=== PATIENT | male | born 1935 | race Caucasian/White ===

== ENCOUNTER 2020-01-02 13:57 | Emergency (ER) | payer MEDICARE, OTHER ==
[2020-01-02 14:09] VITALS: BP 137/87; PULSE 67
--- NOTE | 2020-01-02 14:45 | EDM.PDOC ---
ED HPI GENERAL MEDICAL PROBLEM - General Chief Complaint: Back Pain or Injury Stated Complaint: BACK PAIN Time Seen by Provider: 01/02/20 14:21 Source of Information: Reports: Patient, RN Notes Reviewed History Limitations: Reports: No Limitations - History of Present Illness INITIAL COMMENTS - FREE TEXT/NARRATIVE: Patient is an 84-year-old male who presents to the ED for the evaluation of his mid to lower back pain. Patient states that he is not had any falls or injuries to his back, he states is been present for about a week. He states that he can only recount carrying some groceries quite a ways, and stepping up on a stair, and he felt something pull in his left lower back. He notes that the back is been kind of painful since then. He notes that the pain seemed to get worse today, he went to the walk-in clinic for evaluation, they sent him here for further evaluation as he has a history of an abdominal aortic aneurysm, that was last evaluated in November by Dr. Salas and was found to be stable at that time. They told him that he could have a possible ruptured aneurysm that needed further evaluation. The patient also states that he may have abdominal pain, and his last BM was yesterday, but does not feel constipated. He notes the pain in his back is very sharp pain. Seems to worsen with movement. He further denies any fevers or chills, cough or shortness of breath, vomiting or diarrhea. He does note that he was having some nausea Patient notes he is not having any dysuria, frequency or urgency. He did take Tylenol this morning. Back Pain Score (Numeric/FACES): 8 - Related Data Allergies Allergy/AdvReac Type Severity Reaction Status Date / Time ezetimibe Allergy Rash Verified 01/02/20 14:09 metoprolol Allergy Rash Verified 01/02/20 14:09 morphine Allergy Rash Verified 01/02/20 14:09 sulfacetamide AdvReac Tachycardia Verified 01/02/20 14:09 trimethoprim AdvReac Tachycardia Verified 01/02/20 14:09 Home Meds: Home Meds Amiodarone [Pacerone] 200 mg PO DAILY 10/01/13 [History] Nitroglycerin 0.4 mg SL ASDIRECTED PRN 10/01/13 [History] Omeprazole 20 mg PO DAILY PRN 10/01/13 [History] Warfarin [Coumadin] 7.5 mg PO SUMOWEFR 10/01/13 [History] amLODIPine [Norvasc] 10 mg PO DAILY 10/01/13 [History] atorvaSTATin [Lipitor] 40 mg PO BEDTIME 10/01/13 [History] metFORMIN [metFORMIN XR] 250 mg PO DAILY 10/01/13 [History] Aspirin 81 mg PO DAILY 03/23/15 [History] Warfarin [Coumadin] 5 mg PO TUTHSA 03/23/15 [History] Orphenadrine [Norflex] 1 tab PO Q12H PRN #14 tab.er 05/02/18 [Rx] oxyCODONE HCl/Acetaminophen [Percocet 5-325 mg Tablet] 1 each PO Q6HR #12 tablet 05/04/18 [Rx] Naloxegol Oxalate [Movantik] 25 mg PO DAILY #10 tablet 05/08/18 [Rx] predniSONE 20 mg PO ASDIRECTED #15 tab 01/02/20 [Rx] Past Medical History HEENT History: Reports: Cataract Cardiovascular History: Reports: Afib, Aneurysm (AAA, recently evaluated November 2019 at 5.6 and stable), CAD, Heart Failure, High Cholesterol, Hypertension, [place], PVD Respiratory History: Reports: PE, Sleep Apnea Genitourinary History: Reports: Chronic Renal Insuffiency, Dialysis, Renal Calculus Musculoskeletal History: Reports: Fracture Neurological History: Reports: TIA Endocrine/Metabolic History: Reports: Diabetes, Type II Hematologic History: Reports: Anticoagulation Therapy, Blood Transfusion(s) - Infectious Disease History Infectious Disease History: Reports: MRSA - Past Surgical History HEENT Surgical History: Reports: Cataract Surgery Cardiovascular Surgical History: Reports: Coronary Artery Bypass, Coronary Artery Stent, Pacer, Vascular Surgery Social & Family History - Tobacco Use Smoking Status *Q: Current Every Day Smoker Years of Tobacco use: 70 Packs/Tins Daily: 0.2 - Caffeine Use Caffeine Use: Reports: None - Living Situation & Occupation Living situation: Reports: , with Spouse, with Family (Grandson) Occupation: Retired ED ROS GENERAL - Review of Systems Review Of Systems: Comprehensive ROS is negative, except as noted in HPI. ED EXAM,LOWER BACK PAIN/INJURY - Physical Exam Exam: See Below Exam Limited By: No Limitations General Appearance: Alert, WD/WN, No Apparent Distress Respiratory/Chest: No Respiratory Distress, Lungs Clear, Normal Breath Sounds, No Accessory Muscle Use, Chest Non-Tender Cardiovascular: Normal Peripheral Pulses, Regular Rate, Rhythm, No Edema, No Murmur GI/Abdominal: Normal Bowel Sounds, Soft, Non-Tender, No Distention, No Mass Back Exam: Normal Inspection, Other (Point tenderness in the left lower back, seems to be over the SI joint.) Extremities: Normal Inspection, Normal Capillary Refill Neurological: Alert, Normal Mood/Affect, Normal Dorsiflexion, Normal Plantar Flexion, Difficulty Walking (Patient has been ambulating with a cane, to provide stabilization, as he states it hurts very much to get up out of chairs, and to sit back down.). No: Straight Leg Raise (L), Straight Leg Raise (R), Saddle Anesthesia Psychiatric: Normal Affect, Normal Mood Skin Exam: Warm, Dry, Intact, Normal Color, No Rash Course - Vital Signs Last Recorded V/S: Last Vital Signs Temp 97.0 F 01/02/20 14:06 Pulse 67 01/02/20 14:06 Resp 16 01/02/20 14:06 BP 137/87 01/02/20 14:06 Pulse Ox 98 01/02/20 14:06 - Re-Assessments/Exams Free Text/Narrative Re-Assessment/Exam: 01/02/20 14:48 Patient presents to the ED for evaluation of his back pain. He is thoroughly worried that he has had a ruptured abdominal aortic aneurysm. I assured him that if he was talking with me, this is not very likely; nonetheless he is requesting imaging be done. I have ordered abdomen pelvis CT without contrast for evaluation. 01/02/20 15:[address] demonstrates a abdominal aortic aneurysm measured at 5.6 cm, this is concurrent with what he got told by his multifocal button grinder in November. There is no sign of aneurysm leakage. There is a compression deformity within T11, that shows increased compression from a previous exam. There is also quite a bit of stool appreciated throughout the colon by myself and Dr. Adrian, otherwise no focal abnormalities were appreciated on the abdomen CT that would be causing any of his other issues. There were several calcified gallstones within his gallbladder. 01/02/20 16:02 I did try to go talk with the patient regarding his CT results, and he cannot be found in his room, in any of the ER bathrooms, or the waiting room bathroom in the ER lobby. The admitting staff state they did not see him leave. Unsure as his whereabouts at this time, but it does appear he may have left without results. We will search for him for a little bit longer but he is not been identified anywhere in this ER or ER lobby. 01/02/20 16:11 The patient cell phone was called, and he simply walked by to his , states he is ready to go home without getting results. 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 He can take Norflex for management as he has some of this at home as well. He states he will try this the prednisone be sent to the [place] [facility] [place] [facility] [place] and he will need to go there tomorrow to get these. Departure - Departure Time of Disposition: 15:58 Disposition: Eloped 07 Condition: Good Clinical Impression: AAA (abdominal aortic aneurysm) without rupture Back pain Qualifiers: Back pain location: low back pain Chronicity: acute Back pain laterality: left Sciatica presence: without sciatica Qualified Code(s): M54.5 - Low back pain Compression fracture of T11 vertebra Qualifiers: Encounter type: initial encounter Qualified Code(s): S22.080A - Wedge compression fracture of T11-T12 vertebra, initial encounter for closed fracture - Discharge Information *PRESCRIPTION DRUG MONITORING PROGRAM REVIEWED*: No *COPY OF PRESCRIPTION DRUG MONITORING REPORT IN PATIENT WALLY: No Prescriptions: predniSONE 20 mg PO ASDIRECTED #15 tab Instructions: Abdominal Aortic Aneurysm, [id number], Spinal Compression Fracture Referrals: Adam Stern MD [Primary Care Provider] - Forms: ED Department Discharge Additional Instructions: You were evaluated in the ER today for your back pain, and abdomen pain. A CT was done for evaluation of your AAA, abdomen pain and back pain. Your abdominal aneurysm is stable at 5.6 cm, which correlates to your cardiology a ppointment in November. There is no sign of rupture or leakage at this time. You do have a compression fracture within your T11 vertebrae, but this should not be causing your pain today, your low back pain is most likely musculoskeletal in nature, due to the groceries you were carrying over a week ago. Recommend you go home and take 5 mg Tylenol every 6 hours as needed for further pain relief. Your CT also demonstrated quite a bit of stool throughout your colon, which is suggestive of constipation. I would recommend that you incorporate stool softeners like MiraLAX, Dulcolax or Colace into your daily regimen to help provide a regular bowel regimen, and promote good bowel health. Please return to the ER at any time if your symptoms change or worsen. Sepsis Event Note (ED) - Evaluation Sepsis Screening Result: No Definite Risk - Focused Exam Vital Signs: Vital Signs Temp Pulse Resp BP Pulse Ox 01/02/20 14:06 97.0 F 67 16 137/87 98
--- NOTE | 2020-01-02 15:49 | CT ---
CT abdomen and pelvis Technique: Multiple axial sections were obtained from above the dome of the diaphragm inferiorly through the pubic symphysis. Intravenous contrast was not utilized. Comparison: Prior CT abdomen and pelvis study of 05/04/18. Findings: Mitral annulus calcification is seen. Gynecomastia is noted within the right breast. Adrenal glands show no nodule. Liver contains no focal parenchymal abnormality. Small hiatal hernia is seen. Spleen appears normal. Kidneys show no hydronephrosis. 2 low density lesions are noted within the upper left kidney believed to represent small cysts with larger finding measuring 1.8 cm. Mid and distal abdominal aortic aneurysm is seen. Aneurysm has an AP dimension of 5.6 cm which correlates to 5.3 cm on prior study. Aneurysm does not extend into the iliac arteries. Aneurysm begins below the renal arteries. Atherosclerotic calcification is seen within the abdominal aorta and iliac vessels as well as proximal branch vessels of the ureter. No evidence of aneurysm leakage is seen at this time. No retroperitoneal adenopathy or mesenteric abnormalities are seen. No pelvic mass or adenopathy is seen. Small fat-containing left inguinal hernia seen. No free fluid or inflammatory change is appreciated. Several calcified gallstones are noted within the gallbladder. Femorofemoral bypass graft is noted. Bone window settings shows increased compression deformity within T11 from previous exam. Scattered degenerative change is noted. Impression: 1. Mid and distal abdominal aortic aneurysm. Size has slightly increased from prior study from 5.3 cm to 5.6 cm in AP dimension. 2. Increased compression deformity from prior study within T11. 3. Other findings believed to be incidental as described above. No other acute abnormality is appreciated. Diagnostic code #3 This report was dictated in MDT
== END 2020-01-02 16:17 | disposition left against medical advice (07) ==
LOC: JD.ED 13:57
DX: S22.089A Unspecified fracture of T11-T12 vertebra, initial encounter for closed fracture (principal); M54.5 Low back pain; I71.4 Abdominal aortic aneurysm, without rupture; I13.2 Hypertensive heart and chronic kidney disease with heart failure and with stage 5 chronic kidney disease, or end stage renal disease; E11.22 Type 2 diabetes mellitus with diabetic chronic kidney disease; N18.6 End stage renal disease; I50.9 Heart failure, unspecified; I25.10 Atherosclerotic heart disease of native coronary artery without angina pectoris; E78.00 Pure hypercholesterolemia, unspecified; I25.2 Old myocardial infarction; I48.91 Unspecified atrial fibrillation; F17.210 Nicotine dependence, cigarettes, uncomplicated; Z88.5 Allergy status to narcotic agent; Z88.2 Allergy status to sulfonamides; Z88.8 Allergy status to other drugs, medicaments and biological substances; Z79.01 Long term (current) use of anticoagulants; Z79.899 Other long term (current) drug therapy; Z79.82 Long term (current) use of aspirin; Z99.2 Dependence on renal dialysis; X58.XXXA Exposure to other specified factors, initial encounter
CPT/HCPCS: 74176; 74176-26; 99283; 99283-25

== ENCOUNTER 2020-01-07 15:16 | Emergency (ER) | payer MEDICARE, OTHER ==
[2020-01-07] MEDS ORDERED: Sodium Chloride 0.9% 10 ML Syringe FLUSH PRN (15:34)
[2020-01-07 15:37] VITALS: BP 156/78; PULSE 95
[2020-01-07] MEDS ORDERED: HYDROmorphone 0.5 MG/0.5 ML Syringe IVPUSH ONE (15:44)
[2020-01-07] MEDS ORDERED: Iopamidol 612 MG/ML 100 ML Bottle IVPUSH ONE (15:45)
[2020-01-07] MEDS ORDERED: Sodium Chloride 0.9% 10 ML Syringe FLUSH ONE (15:45)
--- NOTE | 2020-01-07 15:54 | EDM.PDOC ---
ED HPI GENERAL MEDICAL PROBLEM - General Chief Complaint: Back Pain or Injury Stated Complaint: SENT BY DR PARK ABDOMINAL ISSUE Time Seen by Provider: 01/07/20 15:33 Source of Information: Reports: Patient, RN Notes Reviewed History Limitations: Reports: No Limitations - History of Present Illness INITIAL COMMENTS - FREE TEXT/NARRATIVE: Patient is an 84-year-old male who presents to the ED for evaluation of ongoing bilateral mid to lower back pain. This is been going on for the past 10 days. He does have a AAA, that was found to be 5.6 cm by our ER roughly 5 days ago. He did see his primary care provider, Dr. Park, to have lumbar films, and he told us that the radiologist thought it could be up to 6.9 cm at this time. He sent him over here for an abdomen CT, to rule out dissecting aneurysm. He follows with Dr. Salas for cardiology at [place]. The patient's blood pressure at time of triage is 156/78. He is alert and oriented, he states he is in moder ate to severe pain and is not taking any sort of pain medications prior to coming to the ER. He states that when he goes from a sitting to standing position, this hurts worse. He denies any worsening fever/chills, cough/sob, chest pain or abdomen pain. Dr. Park did note that his creatinine was normal at the last time he had drawn labs. Bilateral Middle Back Pain Score (Numeric/FACES): 10 - Related Data Allergies Allergy/AdvReac Type Severity Reaction Status Date / Time ezetimibe Allergy Severe Rash Verified 01/07/20 15:37 metoprolol Allergy Severe Rash Verified 01/07/20 15:37 morphine Allergy Severe Rash Verified 01/07/20 15:37 sulfacetamide AdvReac Tachycardia Verified 01/07/20 15:37 trimethoprim AdvReac Tachycardia Verified 01/07/20 15:37 Home Meds: Home Meds Nitroglycerin 0.4 mg SL ASDIRECTED PRN 10/01/13 [History] Omeprazole 20 mg PO DAILY PRN 10/01/13 [History] Warfarin [Coumadin] 7.5 mg PO DAILY 10/01/13 [History] amLODIPine [Norvasc] 10 mg PO DAILY 10/01/13 [History] atorvaSTATin [Lipitor] 40 mg PO BEDTIME 10/01/13 [History] metFORMIN [metFORMIN XR] 250 mg PO DAILY 10/01/13 [History] Aspirin 81 mg PO DAILY 03/23/15 [History] Albuterol [Proventil HFA] 2 puff INH Q4H PRN 01/07/20 [History] Cyclobenzaprine [Flexeril] 1 tab PO TID PRN 01/07/20 [History] Furosemide [Lasix] 20 mg PO DAILY 01/07/20 [History] Hydrocodone/Acetaminophen [Hydrocodone-Acetamin 5-325 mg] 1 each PO Q6H PRN #20 tablet 01/07/20 [Rx] Hydrocodone/Acetaminophen [[place] 5-325 Tablet] 1 each PO BID PRN 01/07/20 [History] Magnesium Oxide 500 mg PO DAILY 01/07/20 [History] Past Medical History HEENT History: Reports: Cataract Cardiovascular History: Reports: Afib, Aneurysm (5.6cm 01/04/2020.), CAD, Heart Failure, High Cholesterol, Hypertension, [place], PVD, Other (See Below) Other Cardiovascular History: AAA Respiratory History: Reports: PE, Sleep Apnea Gastrointestinal History: Reports: None Genitourinary History: Reports: Chronic Renal Insuffiency, Dialysis, Renal Calculus Musculoskeletal History: Reports: Fracture Neurological History: Reports: TIA Psychiatric History: Reports: None Endocrine/Metabolic History: Reports: Diabetes, Type II Hematologic History: Reports: Anticoagulation Therapy, Blood Transfusion(s) Immunologic History: Reports: None Oncologic (Cancer) History: Reports: None Dermatologic History: Reports: None - Infectious Disease History Infectious Disease History: Reports: None - Past Surgical History HEENT Surgical History: Reports: Cataract Surgery Cardiovascular Surgical History: Reports: Coronary Artery Bypass, Coronary Artery Stent, Pacer, Vascular Surgery, Other (See Below) Other Cardiovascular Surgeries/Procedures: Femoral Artery Stent Social & Family History - Tobacco Use Smoking Status *Q: Current Every Day Smoker Years of Tobacco use: 40 Packs/Tins Daily: 0.5 - Caffeine Use Caffeine Use: Reports: Coffee - Recreational Drug Use Recreational Drug Use: No - Living Situation & Occupation Living situation: Reports: , with Spouse, with Family (Grandson) Occupation: Retired ED ROS GENERAL - Review of Systems Review Of Systems: Comprehensive ROS is negative, except as noted in HPI. ED EXAM,LOWER BACK PAIN/INJURY - Physical Exam Exam: See Below Exam Limited By: No Limitations General Appearance: Alert, WD/WN, No Apparent Distress Respiratory/Chest: No Respiratory Distress, Lungs Clear, Normal Breath Sounds, No Accessory Muscle Use, Chest Non-Tender Cardiovascular: Normal Peripheral Pulses, Regular Rate, Rhythm, No Murmur GI/Abdominal: Normal Bowel Sounds, Soft, Non-Tender, No Distention, No Mass Extremities: Normal Inspection, Normal Capillary Refill Neurological: Alert, Normal Mood/Affect, Normal Dorsiflexion, Normal Plantar Flexion Psychiatric: Normal Affect, Normal Mood Skin Exam: Warm, Dry, Intact, Normal Color, No Rash Course - Vital Signs Last Recorded V/S: Last Vital Signs Temp 96.5 F L 01/07/20 15:33 Pulse 95 01/07/20 15:33 Resp 18 01/07/20 15:33 BP 156/78 H 01/07/20 15:33 Pulse Ox 97 01/07/20 15:33 - Orders/Labs/Meds Orders: Active Orders 24 hr Category Date Time Status Peripheral IV Insertion Adult [OM.PC] Routine Oth 01/07/20 15:33 Ordered Meds: Medications Discontinued Medications Generic Name Dose Route Start Last Admin Trade Name Freq PRN Reason Stop Dose Admin Hydromorphone HCl 0.5 mg 01/07/20 15:44 01/07/20 15:51 Dilaudid IVPUSH 01/07/20 15:45 0.5 mg ONETIME ONE Administration Iopamidol 100 ml 01/07/20 15:45 01/07/20 16:47 Isovue-300 (61%) IVPUSH 01/07/20 15:46 100 ml ONETIME ONE Administration Sodium Chloride 10 ml 01/07/20 15:34 01/07/20 15:52 Saline Flush FLUSH 10 ml ASDIRECTED PRN Administration Keep Vein Open Sodium Chloride 10 ml 01/07/20 15:45 01/07/20 16:47 Saline Flush FLUSH 01/07/20 15:46 10 ml ONETIME ONE Administration - Re-Assessments/Exams Free Text/Narrative Re-Assessment/Exam: 01/07/20 15:57 Patient presents to the ED for ongoing back pain. Will repeat CT of the abdomen pelvis with IV contrast for evaluation of a possible dissecting aneurysm. Patient will also be given 0.5 mg Dilaudid for pain management. 01/07/20 17:[address] of his abdomen shows a aneurysm in his abdomen, that measures 5.7 cm, again 5 days ago as it was 5.6 cm. 01/07/20 17:28 Patient was reassessed at bedside, and he can move more freely with the pain medication given. I will give him some [place] for pain management, I did educate him on the use of this, and he did verbalize understanding. Departure - Departure Time of Disposition: 17:29 Disposition: Home, Self-Care 01 Condition: Good Clinical Impression: AAA (abdominal aortic aneurysm) without rupture Back pain Qualifiers: Back pain location: low back pain Chronicity: acute Back pain laterality: bilateral Sciatica presence: without sciatica Qualified Code(s): M54.5 - Low back pain - Discharge Information Prescriptions: Hydrocodone/Acetaminophen [Hydrocodone-Acetamin 5-325 mg] 1 each PO Q6H PRN #20 tablet PRN Reason: Pain Instructions: Acute Back Pain, Adult Referrals: Adam Park MD [Primary Care Provider] - Forms: ED Department Discharge Additional Instructions: You were evaluated in the ER today for your possible enlarging abdominal aortic aneurysm. Our last study was 5.6 cm for measurement, and today your aneurysm was found to be 5.7 cm. Which is not a significant increase. Please continue to take all your prior medications as previously directed. You have been given a prescription for medication for your back pain, please take as directed. This medication can cause constipation so if you are not already taking a stool softener, please start 1. Also increase your oral fluid intake. This medication can cause slight dizziness as well, please be cautioned when you go from a sitting to standing position. Recommend you follow-up with your supervisor sanding for possible repair of this abdominal aortic aneurysm, or if he would prefer to do some watchful waiting and to make sure it just does not grow. Please return to the ER at any time if your symptoms change or worsen. Sepsis Event Note (ED) - Evaluation Sepsis Screening Result: No Definite Risk - Focused Exam Vital Signs: Vital Signs Temp Pulse Resp BP Pulse Ox 01/07/20 15:33 96.5 F L 95 18 156/78 H 97 - My Orders Last 24 Hours: My Active Orders 01/07/20 15:33 Peripheral IV Insertion Adult [OM.PC] Routine - Assessment/Plan Last 24 Hours: My Active Orders 01/07/20 15:33 Peripheral IV Insertion Adult [OM.PC] Routine
--- NOTE | 2020-01-07 17:16 | CT ---
CT abdomen and pelvis Technique: Multiple axial sections were obtained from above the dome of the diaphragm inferiorly through the pubic symphysis. Intravenous contrast was given. Study performed as a CT angiogram protocol. Findings: Aneurysm is seen within the mid and distal aorta. Aneurysm has a maximum AP dimension of 5.7 cm. This aneurysm measured about 5.6 cm on prior study. Intraluminal thrombus is seen. Diffuse atherosclerotic change noted within the aorta. There is narrowing of the left proximal renal artery but symmetric contrast enhancement is seen of the left kidney as compared to the right kidney. Atherosclerotic change is noted within the proximal right renal artery. 2 small cysts are noted within the upper left kidney. Celiac axis and superior mesenteric artery shows atherosclerotic change without focal stenosis. Common iliac arteries and external iliac arteries show atherosclerotic change. 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 Visualized lung bases show nothing acute. Liver contains no focal parenchymal abnormality. Adrenal glands show no nodule. Gallbladder contains several calcified gallstones. Pancreas shows no discrete abnormality. No retroperitoneal adenopathy or mesenteric abnormalities are seen. No pelvic mass or adenopathy is seen. Appendix is seen which is normal in size. No pelvic mass or adenopathy is seen. No free fluid or inflammatory change is appreciated. Impression: 1. Abdominal aortic aneurysm with maximum AP dimension of about 5.7 cm which is compared to 5.6 cm on prior study. 2. 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 There is some stenosis of the left renal artery but there is symmetric contrast enhancement seen of both kidneys. 3. Other nonacute findings as noted above. Diagnostic code #3 This report was dictated in MDT
== END 2020-01-07 18:08 | disposition home or self-care (01) ==
LOC: JD.ED 15:16
DX: I71.4 Abdominal aortic aneurysm, without rupture (principal); I13.0 Hypertensive heart and chronic kidney disease with heart failure and stage 1 through stage 4 chronic kidney disease, or unspecified chronic kidney disease; E11.22 Type 2 diabetes mellitus with diabetic chronic kidney disease; I50.9 Heart failure, unspecified; N18.9 Chronic kidney disease, unspecified; I48.91 Unspecified atrial fibrillation; I25.10 Atherosclerotic heart disease of native coronary artery without angina pectoris; I25.2 Old myocardial infarction; E11.51 Type 2 diabetes mellitus with diabetic peripheral angiopathy without gangrene; F17.210 Nicotine dependence, cigarettes, uncomplicated; Z88.5 Allergy status to narcotic agent; Z88.2 Allergy status to sulfonamides; Z88.8 Allergy status to other drugs, medicaments and biological substances; Z79.82 Long term (current) use of aspirin; Z79.01 Long term (current) use of anticoagulants; Z79.84 Long term (current) use of oral hypoglycemic drugs; Z86.73 Personal history of transient ischemic attack (TIA), and cerebral infarction without residual deficits; Z79.899 Other long term (current) drug therapy; Z95.5 Presence of coronary angioplasty implant and graft; Z86.711 Personal history of pulmonary embolism
CPT/HCPCS: 74177; 96374; 99284; J1170; Q9967

== ENCOUNTER 2020-01-14 06:03 | Emergency (ER) | payer MEDICARE, OTHER ==
[2020-01-14 06:12] VITALS: BP 140/62; PULSE 64
--- NOTE | 2020-01-14 06:22 | EDM.PDOC ---
<Doni Talbot - Last Filed: 01/14/20 09:56> ED HPI GENERAL MEDICAL PROBLEM - General Chief Complaint: Abdominal Pain Stated Complaint: [facility] AMB Time Seen by Provider: 01/14/20 06:13 - Related Data Allergies Allergy/AdvReac Type Severity Reaction Status Date / Time ezetimibe Allergy Severe Rash Verified 01/14/20 07:03 metoprolol Allergy Severe Rash Verified 01/14/20 07:03 morphine Allergy Severe Rash Verified 01/14/20 07:03 sulfacetamide AdvReac Tachycardia Verified 01/14/20 07:03 trimethoprim AdvReac Tachycardia Verified 01/14/20 07:03 Home Meds: Home Meds Nitroglycerin 0.4 mg SL ASDIRECTED PRN 10/01/13 [History] Omeprazole 20 mg PO DAILY PRN 10/01/13 [History] Warfarin [Coumadin] 7.5 mg PO DAILY 10/01/13 [History] amLODIPine [Norvasc] 10 mg PO DAILY 10/01/13 [History] atorvaSTATin [Lipitor] 40 mg PO BEDTIME 10/01/13 [History] metFORMIN [metFORMIN XR] 250 mg PO DAILY 10/01/13 [History] Aspirin 81 mg PO DAILY 03/23/15 [History] Albuterol [Proventil HFA] 2 puff INH Q4H PRN 01/07/20 [History] Cyclobenzaprine [Flexeril] 1 tab PO TID PRN 01/07/20 [History] Furosemide [Lasix] 20 mg PO DAILY 01/07/20 [History] Hydrocodone/Acetaminophen [Hydrocodone-Acetamin 5-325 mg] 1 each PO Q6H PRN #20 tablet 01/07/20 [Rx] Hydrocodone/Acetaminophen [Ciales 5-325 Tablet] 1 each PO BID PRN 01/07/20 [History] Magnesium Oxide 500 mg PO DAILY 01/07/20 [History] Course - Re-Assessments/Exams Free Text/Narrative Re-Assessment/Exam: 01/14/20 09:45 I assumed care at change of shift patient was evaluated by Dr. Nguyen. He believes the pain is coming from his back but finds it unusual that the patient back symptoms are not getting better over the last couple of weeks. And is concerned about the possibility of his aneurysm causing some discomfort albeit he does not have a acute aortic aneurysm problem at this time. I did discuss patient's case with Dr. Muhammad, vascular surgeon at [facility] in [place]. He believes in the near future the patient needs to be seen and is willing to see the patient first thing Friday to get his aorta issue resolved. On my exam of the patient his abdominal exam is slightly distended no significant discomfort with palpation. Examination of his back reveals significant paraspinous muscle discomfort in the right lumbar area and into the buttocks. The patient does use Flexeril 3 times a day and hydrocodone twice daily and does get good relief of his pain. I again discussed the situation with , who agrees the patient could be safely discharged home. We will keep him on a clear liquid diet and have him drink a bottle of mag citrate today. Departure - Departure Time of Disposition: 09:48 Disposition: Home, Self-Care 01 Clinical Impression: Ileus, AAA (abdominal aortic aneurysm) without rupture - Discharge Information Instructions: Ileus Referrals: Adam Stern MD [Primary Care Provider] - Forms: ED Department Discharge Additional Instructions: Return to the emergency room with any questions problems or worsening symptoms. Return if not better in 24 hours sooner if getting worse Clear liquid diet for the next 24 hours, however you can take your routine medications. After 24 hours slowly advance diet as tolerated. Drink 1 bottle of magnesium citrate today. Follow-up with Dr. Muhammad or the vascular team at [facility] Friday at 10:00 a.[address]. The phone number to the clinic is [phone] Use Tylenol for the pain and try and decrease the use the hydrocodone if possible as this can slow down your intestines. Daily Tylenol intake to less than 4000 mg in a 24-hour. Remember the hydrocodone contains 325 mg of Tylenol, or acetaminophen with each pill. All the Coumadin clinic when you get home and tell them your INR was 4.16 here in the emergency room and they should advise you on further dosing and lab monitoring. <Get Adrian - Last Filed: 01/18/20 19:25> ED HPI GENERAL MEDICAL PROBLEM - General Source of Information: Reports: Patient History Limitations: Reports: No Limitations - History of Present Illness INITIAL COMMENTS - FREE TEXT/NARRATIVE: 84-year-old male presents to the ED for evaluation of diffuse abdominal pain. He reports that he has left upper quadrant left lateral abdominal pain which is constant but has an intermittent colicky component. Current pain is on the right side of the abdomen i.e. it is moving around. Patient has a history of chronic constipation. Took MiraLAX by mouth last week with some bowel movement. He states he had good bowel movement 2 days ago. No blood noted. Pain does cause intermittent nausea but no vomiting. Patient kept on a hydrocodone tablet and a muscle relaxant tonight. Patient has a history of abdominal aortic aneurysm measuring 5.7 cm on most recent evaluation in November of this year with CT abdomen and IV contrast. He has a history of a stent in his right femoral artery and a blockage on the left femoral artery causing peripheral vascular disease. He is a potential candidate for Endo vascular procedure for his aneurysm due to his age but is holding off at this point time due to COVID-19 pandemic. He has had no previous abdominal surgery. He has had open heart surgery and bypass surgery carried out by Dr. Salas in [place]. At present feels mildly short of breath. No burping or belching. Currently rates his pain as 8 out of 10. Onset: Today, Sudden Onset Date: 01/14/20 Onset Time: 00:00 Duration: Hour(s):, Getting Worse Location: Reports: Abdomen (Primarily left upper quadrant of the abdomen but occasional radiation to the right upper quadrant of the abdomen as well.) Quality: Reports: Ache (constant pain ), Sharp, Stabbing Severity: Severe Improves with: Reports: None Worsens with: Reports: None Context: Denies: Activity, Exercise, Lifting, Sick Contact, Trauma Associated Symptoms: Reports: Cough, Loss of Appetite, Malaise, Nausea/Vomiting (occassional nauseabut no vomiting. ), Shortness of Breath. Denies: No Other Symptoms, Confusion, Chest Pain, cough w sputum, Diaphoresis, Fever/Chills, Hea daches, Rash, Seizure, Syncope Treatments DIRECTOR OF ADMISSIONS: Reports: Other (see below) (hydrocodone 5/325mg po about 0400hrs. 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 Respiratory History: Reports: PE, Sleep Apnea Gastrointestinal History: Reports: None, Cholelithiasis, Chronic Constipation Genitourinary History: Reports: Chronic Renal Insuffiency, Dialysis, Renal Calc ulus Musculoskeletal History: Reports: Fracture Neurological History: Reports: TIA Psychiatric History: Reports: None Endocrine/Metabolic History: Reports: Diabetes, Type II (Controlled with metformin 250mg once daily.) Hematologic History: Reports: Anticoagulation Therapy, Blood Transfusion(s) Immunologic History: Reports: None Oncologic (Cancer) History: Reports: None Dermatologic History: Reports: None - Infectious Disease History Infectious Disease History: Reports: None - Past Surgical History HEENT Surgical History: Reports: Cataract Surgery Cardiovascular Surgical History: Reports: Coronary Artery Bypass, Coronary Artery Stent, Pacer, Vascular Surgery, Other (See Below) Other Cardiovascular Surgeries/Procedures: Femoral Artery Stent Social & Family History - Caffeine Use Caffeine Use: Reports: Coffee - Living Situation & Occupation Living situation: Reports: , with Spouse, with Family (Grandson) Occupation: Retired ED ROS GENERAL - Review of Systems Review Of Systems: See Below Constitutional: Reports: Malaise, Weakness, Fatigue, Decreased Appetite. Denies: Fever, Chills HEENT: Reports: Glasses Respiratory: Reports: Shortness of Breath, Wheezing, Cough (occassional), Other ( history of sleep apnea. ). Denies: Pleuritic Chest Pain, Sputum Cardiovascular: Reports: Blood Pressure Problem, Claudication (Lt leg. known femerol artery blockage --previoustenting Rt femoral artery), Dyspnea on Exertion. Denies: Chest Pain, Edema, Lightheadedness, Orthopnea, Palpitations Endocrine: Reports: Fatigue GI/Abdominal: Reports: Abdominal Pain ( see hx of present illness. ), Constipation (chronic), Decreased Appetite, Distension, Nausea (occassionally due to the pain. ). Denies: Diarrhea, Difficulty Swallowing, Flatus, Hematemesis, Hematochezia, Melena, Mucous in Stool : Reports: Frequency, Other (nocturia x 2-3.) Musculoskeletal: Reports: Neck Pain, Shoulder Pain, Back Pain, Joint Pain ( knees andhips on occassion. ) Skin: Reports: No Symptoms Neurological: Reports: Difficulty Walking (due to leg weakness. ), Weakness. Denies: No Symptoms, Confusion, Headache, Numbness, Syncope, Tingling Psychiatric: Reports: No Symptoms Hematologic/Lymphatic: Reports: No Symptoms Immunologic: Reports: No Symptoms ED EXAM, GI/ABD - Physical Exam Exam: See Below Exam Limited By: No Limitations General Appearance: Alert, WD/WN, Moderate Distress, Other ( Temperature is 35.9. Heart rate 64 and sinus respiratory is 22 with O2 sats of 94% on room air BP 140/62.) Eyes: Bilateral: Pale Conjunctiva ( mild bilaterally.) Throat/Mouth: Normal Inspection, Normal Lips, Normal Oropharynx, Other ( dry spittal corner of Rt mouth. ) Head: Atraumatic, Normocephalic Neck: Normal Inspection, Limited Range of Motion, Other ( recent carotid ultrasound was reported to be normal.). No: Full Range of Motion, Carotid Bruit, Lymphadenopathy (L), Lymphadenopathy (R) Respiratory/Chest: Decreased Breath Sounds ( to the lower 25 % bilaterally. ), Wheezing ( occassional expiratory wheeze. ), Other ( wel healed midline sternotomy incision. Pacemaker Lt upper anterior chest. ). No: Lungs Clear, No rmal Breath Sounds, Rhonchi Cardiovascular: Regular Rate, Rhythm, No Edema, No Gallop, No Murmur, No Rub, Other (no palpable pulses below the femerols bilaterally. ). No: Normal Peripheral Pulses GI/Abdominal Exam: Non-Tender, No Organomegaly, No Abnormal Bruit, No Mass, Pelvis Stable, Distended ( and diffusely tympanitic to percussion. ), Abnormal Bowel Sounds ( diffusely hyperactive bowl sounds. ), Other ( palpable abdominal aorticaneurysm on deep palpation. ) Back Exam: Normal Inspection, Decreased Range of Motion. No: CVA Tenderness (L), CVA Tenderness (R) Extremities: Normal Inspection, No Pedal Edema, Joint Swelling ( mild in both knees. ), Other (decreased pulses below the femerol arteries bilaterally. ) Neurological: Alert, Oriented, CN II-XII Intact, Normal Cognition Psychiatric: Anxious Skin Exam: Warm, Dry, Intact, Pallor ( mild pallor. ) EKG INTERPRETATION EKG Date: 01/14/20 Time: 08:00 Rhythm: NSR Rate (Beats/Min): 72 [place]: LAD-Left Ozark Deviation P-Wave: Present (First-degree AV block.) QRS: Other (Left ventricular hypertrophy pattern with repolarization abnormality. Poor R wave progression throughout the anterior septal wall compatible with old anteroseptal myocardial infarction.) ST-T: Other (Diffuse repolarization abnormality particular noted in the inferior leads and V6.) QT: Prolonged (QTC is markedly prolonged.) EKG Interpretation Comments: Abnormal ECG with no signs of acute ischemic change. Course - Vital Signs Last Recorded V/S: Last Vital Signs Temp 35.9 C L 01/14/20 06:07 Pulse 64 01/14/20 06:07 Resp 22 H 01/14/20 06:07 BP 140/62 01/14/20 06:07 Pulse Ox 94 L 01/14/20 06:07 - Orders/Labs/Meds Labs: Laboratory Tests 01/14/20 01/14/20 01/14/20 Range/Units 06:32 06:32 06:32 WBC 9.15 H (4.23-9.07) K/mm3 RBC 5.36 (4.63-6.08) M/mm3 Hgb 15.9 D (13.7-17.5) gm/dl Hct 48.2 (40.1-51.0) % MCV 89.9 (79.0-92.2) fl MCH 29.7 (25.7-32.2) pg MCHC 33.0 (32.2-35.5) g/dl RDW Std Deviation 52.6 H (35.1-43.9) fL Plt Count 282 (163-337) K/mm3 MPV 9.6 (9.4-12.3) fl Neut % (Auto) 76.2 H (34.0-67.9) % Lymph % (Auto) 11.0 L (21.8-53.1) % Edmunds % (Auto) 9.4 (5.3-12.2) % Eos % (Auto) 3.1 (0.8-7.0) Baso % (Auto) 0.1 (0.1-1.2) % Neut # (Auto) 6.97 H (1.78-5.38) K/mm3 Lymph # (Auto) 1.01 L (1.32-3.57) K/mm3 Edmunds # (Auto) 0.86 H (0.30-0.82) K/mm3 Eos # (Auto) 0.28 (0.04-0.54) K/mm3 Baso # (Auto) 0.01 (0.01-0.08) K/mm3 PT 43.3 H (9.7-11.7) SECONDS INR 4.16 APTT 52 H (22-31) SECONDS Sodium 135 L (136-145) mEq/L Potassium 4.3 (3.5-5.1) mEq/L Chloride 100 (98-107) mEq/L Carbon Dioxide 26 (21-32) mEq/L Anion Gap 13.3 (5-15) BUN 18 (7-18) mg/dL Creatinine 1.2 (0.7-1.3) mg/dL Est Cr Clr Drug Dosing 47.46 mL/min Estimated GFR (MDRD) 58 (>60) mL/min BUN/Creatinine Ratio 15.0 (14-18) Glucose 112 (83-115) mg/dL Calcium 10.1 (8.5-10.1) mg/dL Magnesium 2.4 (1.8-2.4) mg/dl Total Bilirubin 0.7 (0.2-1.0) mg/dL AST 23 (15-37) U/L ALT 23 (16-63) U/L Alkaline Phosphatase 122 H (46-116) U/L CK-MB (CK-2) (0-3.6) ng/ml Troponin I 0.105 H* (0.00-0.056) ng/mL C-Reactive Protein 1.8 H* (<1.0) mg/dL NT-Pro-B Natriuret Pep (0-450) pg/mL Total Protein 7.8 (6.4-8.2) g/dl Albumin 3.5 (3.4-5.0) g/dl Globulin 4.3 gm/dL Albumin/Globulin Ratio 0.8 L (1-2) Lipase (73-393) U/L COVID-19 ([facility]) (NEGATIVE) 01/14/20 01/14/20 01/14/20 Range/Units 06:32 06:32 06:32 WBC (4.23-9.07) K/mm3 RBC (4.63-6.08) M/mm3 Hgb (13.7-17.5) gm/dl Hct (40.1-51.0) % MCV (79.0-92.2) fl MCH (25.7-32.2) pg MCHC (32.2-35.5) g/dl RDW Std Deviation (35.1-43.9) fL Plt Count (163-337) K/mm3 MPV (9.4-12.3) fl Neut % (Auto) (34.0-67.9) % Lymph % (Auto) (21.8-53.1) % Edmunds % (Auto) (5.3-12.2) % Eos % (Auto) (0.8-7.0) Baso % (Auto) (0.1-1.2) % Neut # (Auto) (1.78-5.38) K/mm3 Lymph # (Auto) (1.32-3.57) K/mm3 Edmunds # (Auto) (0.30-0.82) K/mm3 Eos # (Auto) (0.04-0.54) K/mm3 Baso # (Auto) (0.01-0.08) K/mm3 PT (9.7-11.7) SECONDS INR APTT (22-31) SECONDS Sodium (136-145) mEq/L Potassium (3.5-5.1) mEq/L Chloride (98-107) mEq/L Carbon Dioxide (21-32) mEq/L Anion Gap (5-15) BUN (7-18) mg/dL Creatinine (0.7-1.3) mg/dL Est Cr Clr Drug Dosing mL/min Estimated GFR (MDRD) (>60) mL/min BUN/Creatinine Ratio (14-18) Glucose (83-115) mg/dL Calcium (8.5-10.1) mg/dL Magnesium (1.8-2.4) mg/dl Total Bilirubin (0.2-1.0) mg/dL AST (15-37) U/L ALT (16-63) U/L Alkaline Phosphatase (46-116) U/L CK-MB (CK-2) 1.3 (0-3.6) ng/ml Troponin I (0.00-0.056) ng/mL C-Reactive Protein (<1.0) mg/dL NT-Pro-B Natriuret Pep 1774 H (0-450) pg/mL Total Protein (6.4-8.2) g/dl Albumin (3.4-5.0) g/dl Globulin gm/dL Albumin/Globulin Ratio (1-2) Lipase 81 (73-393) U/L COVID-19 ([facility]) (NEGATIVE) 01/14/20 Range/Units 08:10 WBC (4.23-9.07) K/mm3 RBC (4.63-6.08) M/mm3 Hgb (13.7-17.5) gm/dl Hct (40.1-51.0) % MCV (79.0-92.2) fl MCH (25.7-32.2) pg MCHC (32.2-35.5) g/dl RDW Std Deviation (35.1-43.9) fL Plt Count (163-337) K/mm3 MPV (9.4-12.3) fl Neut % (Auto) (34.0-67.9) % Lymph % (Auto) (21.8-53.1) % Edmunds % (Auto) (5.3-12.2) % Eos % (Auto) (0.8-7.0) Baso % (Auto) (0.1-1.2) % Neut # (Auto) (1.78-5.38) K/mm3 Lymph # (Auto) (1.32-3.57) K/mm3 Edmunds # (Auto) (0.30-0.82) K/mm3 Eos # (Auto) (0.04-0.54) K/mm3 Baso # (Auto) (0.01-0.08) K/mm3 PT (9.7-11.7) SECONDS INR APTT (22-31) SECONDS Sodium (136-145) mEq/L Potassium (3.5-5.1) mEq/L Chloride (98-107) mEq/L Carbon Dioxide (21-32) mEq/L Anion Gap (5-15) BUN (7-18) mg/dL Creatinine (0.7-1.3) mg/dL Est Cr Clr Drug Dosing mL/min Estimated GFR (MDRD) (>60) mL/min BUN/Creatinine Ratio (14-18) Glucose (83-115) mg/dL Calcium (8.5-10.1) mg/dL Magnesium (1.8-2.4) mg/dl Total Bilirubin (0.2-1.0) mg/dL AST (15-37) U/L ALT (16-63) U/L Alkaline Phosphatase (46-116) U/L CK-MB (CK-2) (0-3.6) ng/ml Troponin I (0.00-0.056) ng/mL C-Reactive Protein (<1.0) mg/dL NT-Pro-B Natriuret Pep (0-450) pg/mL Total Protein (6.4-8.2) g/dl Albumin (3.4-5.0) g/dl Globulin gm/dL Albumin/Globulin Ratio (1-2) Lipase (73-393) U/L COVID-19 ([facility]) Negative (NEGATIVE) Meds: Medications Discontinued Medications Generic Name Dose Route Start Last Admin Trade Name Enedelia PRN Reason Stop Dose Admin Furosemide 40 mg 01/14/20 08:17 01/14/20 09:16 Lasix IVPUSH 01/14/20 08:18 40 mg NOW ONE Administration Hydromorphone HCl 0.5 mg 01/14/20 06:23 01/14/20 06:31 Dilaudid IVPUSH 01/14/20 06:24 0.5 mg ONETIME ONE Administration Sodium Chloride 1,000 mls @ 125 mls/hr 01/14/20 06:30 01/14/20 06:30 Normal Saline IV 125 mls/hr ASDIRECTED SHERLY Administration Sodium Chloride 1,000 mls @ 75 mls/hr 01/14/20 08:15 Normal Saline IV ASDIRECTED SHERLY Ondansetron HCl 4 mg 01/14/20 06:23 01/14/20 06:31 Zofran IVPUSH 01/14/20 06:24 4 mg ONETIME ONE Administration - Radiology Interpretation Free Text/Narrative:: 84-year-old male presents to the ED for evaluation of diffuse abdominal pain. He presents to the ED per [place] [facility] from his own home. Patient complains of left upper quadrant abdominal pain primarily but it radiates occasionally to the right side of the abdomen as well. He has a history of chronic constipation with good bowel movements x2 on January 11. Abdominal pain last week and on January 07. He apparently had a CT scan of his abdomen performed at that time. Results will be looked up. Subsequently has had a CT of the abdomen per [facility] on January 09 with contrast to evaluate abdominal aortic aneurysm which apparently is now measuring 5.7 cm. He is a candidate for endovascular procedure but awaiting surgery due to COVID-19 pandemic. Current pain is constant with a colicky component. Exam reveals diffuse tympany to percussion with hyperactive bowel sounds in all 4 quadrants. No surgical scars on the abdomen other than where drain site was below his sternum after open heart surgery or cardiac bypass many years ago. Soft palpation with no localized pain identified. Previous surgeries of the right inguinal area from placement of a femoral artery stent. No pulses are palpable below the femorals. Plan IV fluids normal saline at 125 mils per hour. Given Dilaudid 0.5 mg IV with Zofran 4 mg IV for pain relief. He will have a KUB performed. Routine labs to be collected including CRP. - Re-Assessments/Exams Free Text/Narrative Re-Assessment/Exam: 01/14/20 06:56 Hematology reveals white count of 9.15 with 76.2% neutrophils. Hemoglobin is 15.9 with hematocrit of 48.2 suggesting mild hemoconcentration. Platelet counts 282,000. 01/14/20 07:26 KUB reveals a large amount of air distending several loops of dilated small bowel compatible with at least partial small bowel obstruction. Patient reports still passing flatus up until about 6 to 8 hours ago. There is a minimal amount of stool in the left hemicolon and a medium stool bolus in the rectal vault. Labs are pending as far as chemistry goes. Several small gallstones are evident on the KUB. Karla present in the right inguinal area due to previous right arterial stenting. Patient reports his pain is pretty well gone at this point time. He has been able to relax and fall asleep in the ER. 01/14/20 07:28 PT is elevated at 43.3 with an INR of 4.16. PTT is elevated as well at 52. Sodium slightly low at 132. Potassium 4.3. Chloride 100 with a bicarb of 26. Anion gap is 13.3. BUN is 18 with a creatinine of 1.2. Estimated GFR is 58. Glucose is 112 with a calcium of 10.1 upper limits of normal. Magnesium is 2.4. Total bilirubin is 0.7 with an AST of 23 and an ALT of 23. Alk phos days is 122. Troponin I is elevated at 0.105. Have CK-MB done to see if there is any evidence of acute myocardial infarction vs a stress response. ECG will be ordered. CXR as well. C-reactive protein elevated at 1.8. Total protein 7.8 with an albumin fraction of 3.5. 01/14/20 07:31 Radiologist comments that abdominal aortic aneurysm is noted within the distal aorta. Measurement is somewhat overestimated at 6.9 cm. This aneurysm measured 5.[address] exam 6 days ago. Iliac stent noted on the right side. He comments that gas and stool noted throughout the colon. Gas is mildly prominent within small bowel most likely due to obstipation versus an ileus. Patient clinically does not have an ileus as he has very hyperactive bowel sounds. He does not feel there is any obstructive component to the dilated bowl. 01/14/20 07:45 BNP is elevated at 1774. He usually takes Lasix every morning according to his med list. He deniesthat he is on lasix daily. Rubens lreduce his IV to 75mls/hr. Will be given Lasix 40mg IV now for CHF. 01/14/20 07:57 chest x-ray reveals marked cardiomegaly. Slightly hyperinflated lung curtis bilaterally. No evidence of significant vascular congestion or pleural effusions. He does have a pacemaker left upper anterior chest. I did look at his CT scan of chest abdomen pelvis that was performed on the of this month. It did reveal a 5.7 cm aneurysm of the abdominal aorta. Liver was mildly enlarged with fatty infiltration. Multiple also find gallstones appreciated on CT. Both kidneys are atrophic but filled adequately and the ureters were normal. He did have diffusely dilated loops of small bowel on shoe treer film prior to the CT scan. CT did reveal a good deal of stool throughout the colon with some air-fluid levels in the transverse colon. 01/14/20 08:14 she has been able to rest in the ED. He states his abdominal pain is very minimal like 1 out of 10 at most. He does not feel however that he is passed any flatus since coming into the ER. Is elevated INR is likely secondary to not eating much food as of late. He reports that he takes 7.5 mg of Coumadin every night at bedtime and he did so last night. Care will be transferred to Dr. Talbot at change of shift. Pending labs are serum lipase and CK-MB. It appears the patient will need admission to the hospital for observation status to make sure is not going to be developed a small bowel obstruction and for relief of abdominal pain. Departure - Discharge Information *PRESCRIPTION DRUG MONITORING PROGRAM REVIEWED*: Not Applicable *COPY OF PRESCRIPTION DRUG MONITORING REPORT IN PATIENT WALLY: Not Applicable Sepsis Event Note (ED) - Evaluation Sepsis Screening Result: No Definite Risk
[2020-01-14] MEDS ORDERED: HYDROmorphone 0.5 MG/0.5 ML Syringe IVPUSH ONE (06:23)
[2020-01-14] MEDS ORDERED: Ondansetron 4 MG/2 ML SDV IVPUSH ONE (06:23)
[2020-01-14] MEDS ORDERED: Sodium Chloride 0.9% 1,000 ML IV SCH ×2 (06:30→08:15)
--- NOTE | 2020-01-14 07:22 | CR ---
Abdomen: Supine view of the abdomen was obtained. Comparison: Previous abdominal x-ray of 05/08/18. Previous CT abdomen and pelvis study of 01/07/20. Gas and stool noted throughout the colon. Gas is mildly prominent within small bowel most likely due to obstipation or ileus. This does not appear obstructive. Calcificat calcifications are ion seen within the upper right abdomen which are most likely due to gallstones. Abdominal aortic aneurysm is noted within the distal aorta. Measurement is somewhat overestimated at 6.9 cm, this aneurysm measured 5.[address] exam. Iliac stent is noted. Bony structures are osteopenic. Surgical clips are seen overlying the right hip. Impression: 1. Scattered gas and stool throughout the colon. Gas is mildly prominent within portions of small bowel most likely due to obstipation or ileus. 2. Gallstones and abdominal aortic aneurysm. Diagnostic code #3 This report was dictated in MDT
[2020-01-14] MEDS ORDERED: Furosemide 40 MG/4 ML VIAL IVPUSH ONE (08:17)
--- NOTE | 2020-01-14 08:28 | CR ---
Chest: Portable view of the chest was obtained. Comparison: Prior chest x-ray of 05/02/16. Heart size is within normal limits for portable technique. Tortuous thoracic aorta is noted. Sternotomy wires are seen. Pacemaker is noted. Lungs are clear with no acute parenchymal change. Bony structures are grossly intact. Impression: 1. Nothing acute is seen on portable chest x-ray. Diagnostic code #2 This report was dictated in MDT
--- NOTE | 2020-01-14 09:32 | PCM.CONS ---
H&P History of Present Illness - General Date of Service: 01/14/20 Source of Information: Patient History Limitations: Reports: No Limitations - History of Present Illness Initial Comments - Free Text/Narative: The patient presents to the ED for severe back pain. This has been going on for the past two weeks. It is slowly worsening. He denies any abdominal pain. Back pain is in the lower back, slightly to the left. Worse with movement such as turning or twisting. Better with resting. He denies any trauma to the back. He does report that he felt a small muscle pull in the left lower abdomen 2 weeks ago as he was carrying groceries upstairs but this does not seem directly connected to his back pain. He denies any nausea, vomiting, diarrhea. He does report history of intermittent constipation.Last BM was yesterday. He has been passing flatus. He is tolerating diet. Onset of Symptoms: Reports: Gradual Duration of Symptoms: Reports: Day(s): (14) Location: Reports: Back Quality: Reports: Ache, Sharp Severity: Severe Improves with: Reports: Immobilization Worsens with: Reports: Other (turning and twisting), Movement Associated Symptoms: Reports: No Other Symptoms Bilateral Lower Back Pain Score (Numeric/FACES): 10 - Related Data Allergies/Adverse Reactions: Allergies Allergy/AdvReac Type Severity Reaction Status Date / Time ezetimibe Allergy Severe Rash Verified 01/14/20 07:03 metoprolol Allergy Severe Rash Verified 01/14/20 07:03 morphine Allergy Severe Rash Verified 01/14/20 07:03 sulfacetamide AdvReac Tachycardia Verified 01/14/20 07:03 trimethoprim AdvReac Tachycardia Verified 01/14/20 07:03 Home Medications: Home Meds Nitroglycerin 0.4 mg SL ASDIRECTED PRN 10/01/13 [History] Omeprazole 20 mg PO DAILY PRN 10/01/13 [History] Warfarin [Coumadin] 7.5 mg PO DAILY 10/01/13 [History] amLODIPine [Norvasc] 10 mg PO DAILY 10/01/13 [History] atorvaSTATin [Lipitor] 40 mg PO BEDTIME 10/01/13 [History] metFORMIN [metFORMIN XR] 250 mg PO DAILY 10/01/13 [History] Aspirin 81 mg PO DAILY 03/23/15 [History] Albuterol [Proventil HFA] 2 puff INH Q4H PRN 01/07/20 [History] Cyclobenzaprine [Flexeril] 1 tab PO TID PRN 01/07/20 [History] Furosemide [Lasix] 20 mg PO DAILY 01/07/20 [History] Hydrocodone/Acetaminophen [Hydrocodone-Acetamin 5-325 mg] 1 each PO Q6H PRN #20 tablet 01/07/20 [Rx] Hydrocodone/Acetaminophen [[place] 5-325 Tablet] 1 each PO BID PRN 01/07/20 [History] Magnesium Oxide 500 mg PO DAILY 01/07/20 [History] Past Medical History HEENT History: Reports: Cataract Cardiovascular History: Reports: Afib, Aneurysm (5.6cm 01/04/2020.), 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 Respiratory History: Reports: PE, Sleep Apnea Gastrointestinal History: Reports: None, Cholelithiasis, Chronic Constipation Genitourinary History: Reports: Chronic Renal Insuffiency, Dialysis, Renal Calculus Musculoskeletal History: Reports: Fracture Neurological History: Reports: TIA Psychiatric History: Reports: None Endocrine/Metabolic History: Reports: Diabetes, Type II (Controlled with metf ormin 250mg once daily.) Hematologic History: Reports: Anticoagulation Therapy, Blood Transfusion(s) Immunologic History: Reports: None Oncologic (Cancer) History: Reports: None Dermatologic History: Reports: None - Infectious Disease History Infectious Disease History: Reports: None - Past Surgical History HEENT Surgical History: Reports: Cataract Surgery Cardiovascular Surgical History: Reports: Coronary Artery Bypass, Coronary Artery Stent, Pacer, Vascular Surgery, Other (See Below) Other Cardiovascular Surgeries/Procedures: Femoral Artery Stent Social & Family History - Tobacco Use Smoking Status *Q: Never Smoker Second Hand Smoke Exposure: No - Caffeine Use Caffeine Use: Reports: Coffee - Recreational Drug Use Recreational Drug Use: No - Living Situation & Occupation Living situation: Reports: , with Spouse, with Family (Grandson) Occupation: Retired H&P Review of Systems - Review of Systems: Review Of Systems: See Below General: Reports: No Symptoms HEENT: Reports: No Symptoms Pulmonary: Reports: No Symptoms Cardiovascular: Reports: No Symptoms Gastrointestinal: Reports: No Symptoms Genitourinary: Reports: No Symptoms Musculoskeletal: Reports: Back Pain Skin: Reports: No Symptoms Psychiatric: Reports: No Symptoms Neurological: Reports: No Symptoms Exam - Exam Exam: See Below - Vital Signs Vital Signs: Last Vital Signs Temp 96.6 F L 01/14/20 06:07 Pulse 64 01/14/20 06:07 Resp 22 H 01/14/20 06:07 BP 140/62 01/14/20 06:07 Pulse Ox 94 L 01/14/20 06:07 Weight: 81.647 kg - Exam General: Alert, Oriented, Cooperative Lungs: Clear to Auscultation, Normal Respiratory Effort Cardiovascular: Regular Rate, Regular Rhythm, Normal S1, Normal S2 GI/Abdominal Exam: Soft, Non-Tender, No Organomegaly, No Distention, No Mass Back Exam: Paraspinal Tenderness (on a localized spot in the lower back just to the left of the spine) Extremities: Normal Inspection, Normal Range of Motion - Patient Data Lab Results Last 24 hrs: Laboratory Results - last 24 hr 01/14/20 01/14/20 01/14/20 Range/Units 06:32 06:32 06:32 WBC 9.15 H (4.23-9.07) K/mm3 RBC 5.36 (4.63-6.08) M/mm3 Hgb 15.9 D (13.7-17.5) gm/dl Hct 48.2 (40.1-51.0) % MCV 89.9 (79.0-92.2) fl MCH 29.7 (25.7-32.2) pg MCHC 33.0 (32.2-35.5) g/dl RDW Std Deviation 52.6 H (35.1-43.9) fL Plt Count 282 (163-337) K/mm3 MPV 9.6 (9.4-12.3) fl Neut % (Auto) 76.2 H (34.0-67.9) % Lymph % (Auto) 11.0 L (21.8-53.1) % Wolfe % (Auto) 9.4 (5.3-12.2) % Eos % (Auto) 3.1 (0.8-7.0) Baso % (Auto) 0.1 (0.1-1.2) % Neut # (Auto) 6.97 H (1.78-5.38) K/mm3 Lymph # (Auto) 1.01 L (1.32-3.57) K/mm3 Wolfe # (Auto) 0.86 H (0.30-0.82) K/mm3 Eos # (Auto) 0.28 (0.04-0.54) K/mm3 Baso # (Auto) 0.01 (0.01-0.08) K/mm3 PT 43.3 H (9.7-11.7) SECONDS INR 4.16 APTT 52 H (22-31) SECONDS Sodium 135 L (136-145) mEq/L Potassium 4.3 (3.5-5.1) mEq/L Chloride 100 (98-107) mEq/L Carbon Dioxide 26 (21-32) mEq/L Anion Gap 13.3 (5-15) BUN 18 (7-18) mg/dL Creatinine 1.2 (0.7-1.3) mg/dL Est Cr Clr Drug Dosing 47.46 mL/min Estimated GFR (MDRD) 58 (>60) mL/min BUN/Creatinine Ratio 15.0 (14-18) Glucose 112 (83-115) mg/dL Calcium 10.1 (8.5-10.1) mg/dL Magnesium 2.4 (1.8-2.4) mg/dl Total Bilirubin 0.7 (0.2-1.0) mg/dL AST 23 (15-37) U/L ALT 23 (16-63) U/L Alkaline Phosphatase 122 H (46-116) U/L CK-MB (CK-2) (0-3.6) ng/ml Troponin I 0.105 H* (0.00-0.056) ng/mL C-Reactive Protein 1.8 H* (<1.0) mg/dL NT-Pro-B Natriuret Pep (0-450) pg/mL Total Protein 7.8 (6.4-8.2) g/dl Albumin 3.5 (3.4-5.0) g/dl Globulin 4.3 gm/dL Albumin/Globulin Ratio 0.8 L (1-2) Lipase (73-393) U/L COVID-19 ([facility]) (NEGATIVE) 01/14/20 01/14/20 01/14/20 Range/Units 06:32 06:32 06:32 WBC (4.23-9.07) K/mm3 RBC (4.63-6.08) M/mm3 Hgb (13.7-17.5) gm/dl Hct (40.1-51.0) % MCV (79.0-92.2) fl MCH (25.7-32.2) pg MCHC (32.2-35.5) g/dl RDW Std Deviation (35.1-43.9) fL Plt Count (163-337) K/mm3 MPV (9.4-12.3) fl Neut % (Auto) (34.0-67.9) % Lymph % (Auto) (21.8-53.1) % Wolfe % (Auto) (5.3-12.2) % Eos % (Auto) (0.8-7.0) Baso % (Auto) (0.1-1.2) % Neut # (Auto) (1.78-5.38) K/mm3 Lymph # (Auto) (1.32-3.57) K/mm3 Wolfe # (Auto) (0.30-0.82) K/mm3 Eos # (Auto) (0.04-0.54) K/mm3 Baso # (Auto) (0.01-0.08) K/mm3 PT (9.7-11.7) SECONDS INR APTT (22-31) SECONDS Sodium (136-145) mEq/L Potassium (3.5-5.1) mEq/L Chloride (98-107) mEq/L Carbon Dioxide (21-32) mEq/L Anion Gap (5-15) BUN (7-18) mg/dL Creatinine (0.7-1.3) mg/dL Est Cr Clr Drug Dosing mL/min Estimated GFR (MDRD) (>60) mL/min BUN/Creatinine Ratio (14-18) Glucose (83-115) mg/dL Calcium (8.5-10.1) mg/dL Magnesium (1.8-2.4) mg/dl Total Bilirubin (0.2-1.0) mg/dL AST (15-37) U/L ALT (16-63) U/L Alkaline Phosphatase (46-116) U/L CK-MB (CK-2) 1.3 (0-3.6) ng/ml Troponin I (0.00-0.056) ng/mL C-Reactive Protein (<1.0) mg/dL NT-Pro-B Natriuret Pep 1774 H (0-450) pg/mL Total Protein (6.4-8.2) g/dl Albumin (3.4-5.0) g/dl Globulin gm/dL Albumin/Globulin Ratio (1-2) Lipase 81 (73-393) U/L COVID-19 ([facility]) (NEGATIVE) 01/14/20 Range/Units 08:10 WBC (4.23-9.07) K/mm3 RBC (4.63-6.08) M/mm3 Hgb (13.7-17.5) gm/dl Hct (40.1-51.0) % MCV (79.0-92.2) fl MCH (25.7-32.2) pg MCHC (32.2-35.5) g/dl RDW Std Deviation (35.1-43.9) fL Plt Count (163-337) K/mm3 MPV (9.4-12.3) fl Neut % (Auto) (34.0-67.9) % Lymph % (Auto) (21.8-53.1) % Wolfe % (Auto) (5.3-12.2) % Eos % (Auto) (0.8-7.0) Baso % (Auto) (0.1-1.2) % Neut # (Auto) (1.78-5.38) K/mm3 Lymph # (Auto) (1.32-3.57) K/mm3 Wolfe # (Auto) (0.30-0.82) K/mm3 Eos # (Auto) (0.04-0.54) K/mm3 Baso # (Auto) (0.01-0.08) K/mm3 PT (9.7-11.7) SECONDS INR APTT (22-31) SECONDS Sodium (136-145) mEq/L Potassium (3.5-5.1) mEq/L Chloride (98-107) mEq/L Carbon Dioxide (21-32) mEq/L Anion Gap (5-15) BUN (7-18) mg/dL Creatinine (0.7-1.3) mg/dL Est Cr Clr Drug Dosing mL/min Estimated GFR (MDRD) (>60) mL/min BUN/Creatinine Ratio (14-18) Glucose (83-115) mg/dL Calcium (8.5-10.1) mg/dL Magnesium (1.8-2.4) mg/dl Total Bilirubin (0.2-1.0) mg/dL AST (15-37) U/L ALT (16-63) U/L Alkaline Phosphatase (46-116) U/L CK-MB (CK-2) (0-3.6) ng/ml Troponin I (0.00-0.056) ng/mL C-Reactive Protein (<1.0) mg/dL NT-Pro-B Natriuret Pep (0-450) pg/mL Total Protein (6.4-8.2) g/dl Albumin (3.4-5.0) g/dl Globulin gm/dL Albumin/Globulin Ratio (1-2) Lipase (73-393) U/L COVID-19 ([facility]) Negative (NEGATIVE) Result Diagrams: 01/14/20 06:32 01/14/20 06:32 Sepsis Event Note - Evaluation Sepsis Screening Result: No Definite Risk - Focused Exam Vital Signs: Vital Signs Temp Pulse Resp BP Pulse Ox 01/14/20 06:07 96.6 F L 64 22 H 140/62 94 L Consult PN Assessment/Plan Procedures: Procedures ASSAY OF AMYLASE (05/02/16) ASSAY OF CK (CPK) (10/01/13) ASSAY OF IRON (04/23/18) ASSAY OF LIPASE (05/08/18) ASSAY OF TRANSFERRIN (04/23/18) ASSAY OF TROPONIN QUANT (05/02/16) ASSAY OF UREA NITROGEN (04/23/18) AUTOMATED PLATELET COUNT (05/01/18) BL SMEAR W/DIFF WBC COUNT (05/08/18) C-REACTIVE PROTEIN (05/08/18) CHEST X-RAY 1 VIEW FRONTAL (05/02/16) COMPLETE CBC AUTOMATED (05/08/18) COMPLETE CBC W/AUTO DIFF WBC (05/02/16) COMPREHEN METABOLIC PANEL (05/08/18) CREATINE MB FRACTION (05/02/16) CT ABD & PELV W/CONTRAST (01/07/20) CT ABD & PELVIS W/O CONTRAST (01/02/20) CT ANGIOGRAPHY CHEST (05/02/16) CT THORAX W/DYE (11/25/14) CULTURE AEROBIC IDENTIFY (09/19/17) CULTURE OTHR SPECIMN AEROBIC (09/19/17) DRAIN/INJ JOINT/BURSA W/O US (02/23/19) ELECTROCARDIOGRAM TRACING (05/02/16) EMERGENCY DEPT VISIT (01/07/20) EMERGENCY DEPT VISIT (01/02/20) EMERGENCY DEPT VISIT (05/08/18) EMERGENCY DEPT VISIT (03/07/18) EMERGENCY DEPT VISIT (05/02/16) FIBRIN DEGRADATION QUANT (05/02/16) HELICOBACTER PYLORI ANTIBODY (10/01/13) HEPATITIS C AB TEST (04/17/18) HYDRATE IV INFUSION ADD-ON (05/08/18) MICROBE SUSCEPTIBLE MAYI (09/19/17) PROTHROMBIN TIME (05/02/16) RENAL FUNCTION PANEL (05/01/18) ROUTINE VENIPUNCTURE (05/08/18) THER/PROPH/DIAG INJ IV PUSH (01/07/20) THER/PROPH/DIAG INJ SC/IM (05/04/18) URINALYSIS AUTO W/SCOPE (05/04/18) URINE BACTERIA CULTURE (07/05/14) URINE CULTURE/COLONY COUNT (05/02/18) X-RAY EXAM ABDOMEN 2 VIEWS (05/08/18) Problem List Initiated/Reviewed/Updated: No Plan: The patient has back pain. Based on history and exam, he does not have any acute bowel problem. His back pain may be due to expanding AAA vs musculoskeletal problem. Since this has been going on for 2 weeks without improvement, I would recommend evaluation by a vascular surgeon to see if this is due to the AAA. This recommendation was discussed with the Dr. Talbot who spoke with Dr. Patsy mobley, vascular surgeon who will see the patient in Vascular surgery clinic on Friday.
== END 2020-01-14 11:30 | disposition home or self-care (01) ==
LOC: JD.ED 06:03
DX: I71.4 Abdominal aortic aneurysm, without rupture (principal); K56.7 Ileus, unspecified; M79.89 Other specified soft tissue disorders; I48.91 Unspecified atrial fibrillation; I25.10 Atherosclerotic heart disease of native coronary artery without angina pectoris; I25.2 Old myocardial infarction; E11.51 Type 2 diabetes mellitus with diabetic peripheral angiopathy without gangrene; I13.0 Hypertensive heart and chronic kidney disease with heart failure and stage 1 through stage 4 chronic kidney disease, or unspecified chronic kidney disease; E11.22 Type 2 diabetes mellitus with diabetic chronic kidney disease; N18.9 Chronic kidney disease, unspecified; I50.9 Heart failure, unspecified; Z95.5 Presence of coronary angioplasty implant and graft; Z88.5 Allergy status to narcotic agent; Z88.2 Allergy status to sulfonamides; Z88.8 Allergy status to other drugs, medicaments and biological substances; Z79.01 Long term (current) use of anticoagulants; Z79.82 Long term (current) use of aspirin; Z79.84 Long term (current) use of oral hypoglycemic drugs; Z79.899 Other long term (current) drug therapy; Z86.73 Personal history of transient ischemic attack (TIA), and cerebral infarction without residual deficits; Z20.828 Contact with and (suspected) exposure to other viral communicable diseases
CPT/HCPCS: 36415; 71045; 74018; 80053; 82553; 83690; 83735; 83880; 84484; 85025; 85610; 85730; 86140; 93005; 96361; 96374; 96375; 99284; J1170; J1940; J2405; J7030; U0002; 93010

== ENCOUNTER 2023-05-02 18:38 | Inpatient (IN) | payer MEDICARE, OTHER ==
[2023-05-02] MEDS ORDERED: Sodium Chloride 0.9% 10 ML Syringe FLUSH PRN (19:21)
[2023-05-02] MEDS ORDERED: Aspirin 81 MG Tab.Chew PO ONE ×2 (19:21→19:30)
[2023-05-02 19:44] LABS: BASOPHILS PERCENT AUTO 0.4 % (0.0-1.0); EOSINOPHILS ABSOLUTE AUTO 0.3 K/mm3 (0.0-0.4); EOSINOPHILS PERCENT AUTO 5.5 % (0.0-6.0); HEMATOCRIT 37.8 % (42.0-52.0); HEMOGLOBIN 12.4 gm/dl (14.0-18.0); IMMATURE GRAN ABSOLUTE AUTO 0.01 K/mm3 (0.00-0.05); IMMATURE GRAN PERCENT AUTO 0.2 % (0.0-0.4); INR 1.17; LYMPHOCYTES ABSOLUTE AUTO 0.8 K/mm3 (1.0-4.8); LYMPHOCYTES PERCENT AUTO 13.8 % (24.0-44.0); MEAN CORPUSCULAR HEMOGLOBIN 31.6 pg (28.0-32.0); MEAN CORPUSCULAR HGB CONC 32.8 g/dl (32.0-36.0); MEAN CORPUSCULAR VOLUME 96.4 fl (83.0-99.0); MEAN PLATELET VOLUME 10.5 fl (9.4-12.4); MONOCYTES ABSOLUTE AUTO 0.5 K/mm3 (0.0-0.8); MONOCYTES PERCENT AUTO 8.5 % (0.0-8.0); NEUTROPHILS ABSOLUTE AUTO 4.1 K/mm3 (1.8-7.7); NEUTROPHILS PERCENT AUTO 71.6 % (41.0-71.0); PLATELET COUNT,PLT 144 K/mm3 (150-400); PROTHROMBIN TIME 12.4 SECONDS (9.7-12.0); RED BLOOD CELL COUNT 3.92 M/mm3 (4.52-5.90); WHITE BLOOD CELL COUNT,WBC 5.65 K/mm3 (3.9-11.3)
[2023-05-02 19:49] LABS: D-DIMER QUANTITATIVE 2.14 mg/L (0.19-0.50)
[2023-05-02 20:05] LABS: A/G RATIO 0.9 (1-2); ALBUMIN 3.2 g/dl (3.4-5.0); ANION GAP 14.5 (5-15); BILIRUBIN TOTAL 1.1 mg/dL (0.2-1.0); BUN/CREATININE RATIO 16.9 (14-18); CALCIUM 9.4 mg/dL (8.5-10.1); CREATININE 1.3 mg/dL (0.7-1.3); EST CRCL DRUG DOSING (CG) 40.19 mL/min; MAGNESIUM 1.9 mg/dL (1.8-2.4); PROTEIN TOTAL,TP 6.6 g/dl (6.4-8.2)
[2023-05-02 20:07] LABS: POTASSIUM,K 4.5 mEq/L (3.5-5.1)
[2023-05-02] MEDS ORDERED: Heparin Sodium 5,000 Units/ML Vial IVPUSH ONE ×2 (20:09→20:12)
[2023-05-02] MEDS ORDERED: Heparin Sodium/D5W 25,000 UNITS/500 ML BAG IV SCH (20:15)
[2023-05-02 21:32] LABS: CORONAVIRUS COVID-19 NAA NEGATIVE (NEGATIVE); INFLUENZA A NAA NEGATIVE (NEGATIVE); RESPIRATORY SYNCYTIAL VIR NAA NEGATIVE (NEGATIVE)
[2023-05-02] MEDS ORDERED: Furosemide 20 MG/2 ML VIAL IVPUSH ONE (21:56)
[2023-05-03] MEDS ORDERED: Metoprolol Tartrate 5 MG/5 ML SDV IVPUSH ONE ×2 (00:37→03:13)
[2023-05-03] MEDS: Metoprolol Tartrate 25 MG Tab PO SCH ×2 (02:20→15:18)
[2023-05-03] MEDS ORDERED: Furosemide 40 MG/4 ML VIAL IVPUSH SCH (09:00)
[2023-05-03] MEDS ORDERED: Ondansetron 4 MG Tab.DIS PO PRN (11:27)
[2023-05-03] MEDS ORDERED: Docusate Sodium 100 MG Cap PO PRN (11:27)
[2023-05-03] MEDS ORDERED: Acetaminophen 325 MG Tab PO PRN (11:27)
[2023-05-03] MEDS ORDERED: Albuterol/Ipratropium 3.0-0.5 MG/3 ML Neb Soln NEB PRN (11:27)
[2023-05-03] MEDS ORDERED: Ondansetron 4 MG/2 ML SDV IV PRN (11:27)
[2023-05-03] MEDS ORDERED: hydrOXYzine HCl 25 MG Tab PO PRN (11:30)
[2023-05-03] MEDS ORDERED: Nitroglycerin 0.4 MG Tab.SL SL PRN (11:30)
[2023-05-03] MEDS: Clopidogrel 75 MG Tab PO SCH (11:52)
[2023-05-03] MEDS: Apixaban 5 MG Tab PO SCH ×2 (11:52→21:01)
[2023-05-03] MEDS: Pantoprazole 40 MG Tab.CR PO SCH (11:52)
[2023-05-03] MEDS: Losartan 25 MG Tab PO SCH (11:52)
[2023-05-03] MEDS: Furosemide 40 MG Tab PO SCH (15:18)
[2023-05-04] MEDS: Metoprolol Tartrate 25 MG Tab PO SCH ×2 (01:40→14:37)
[2023-05-04] MEDS: Pantoprazole 40 MG Tab.CR PO SCH (05:32)
[2023-05-04] MEDS: Furosemide 40 MG Tab PO SCH ×2 (05:32→14:37)
[2023-05-04 05:53] LABS: BASOPHILS PERCENT AUTO 0.4 % (0.0-1.0); EOSINOPHILS ABSOLUTE AUTO 0.5 K/mm3 (0.0-0.4); EOSINOPHILS PERCENT AUTO 7.6 % (0.0-6.0); HEMOGLOBIN 13.4 gm/dl (14.0-18.0); IMMATURE GRAN ABSOLUTE AUTO 0.03 K/mm3 (0.00-0.05); IMMATURE GRAN PERCENT AUTO 0.4 % (0.0-0.4); LYMPHOCYTES ABSOLUTE AUTO 0.8 K/mm3 (1.0-4.8); LYMPHOCYTES PERCENT AUTO 11.5 % (24.0-44.0); MEAN CORPUSCULAR HEMOGLOBIN 30.2 pg (28.0-32.0); MEAN CORPUSCULAR HGB CONC 32.7 g/dl (32.0-36.0); MEAN PLATELET VOLUME 10.7 fl (9.4-12.4); MONOCYTES ABSOLUTE AUTO 0.6 K/mm3 (0.0-0.8); MONOCYTES PERCENT AUTO 9.4 % (0.0-8.0); NEUTROPHILS ABSOLUTE AUTO 4.7 K/mm3 (1.8-7.7); NEUTROPHILS PERCENT AUTO 70.7 % (41.0-71.0); PLATELET COUNT,PLT 165 K/mm3 (150-400); RED BLOOD CELL COUNT 4.44 M/mm3 (4.52-5.90); WHITE BLOOD CELL COUNT,WBC 6.69 K/mm3 (3.9-11.3)
[2023-05-04 06:17] LABS: MEAN CORPUSCULAR VOLUME 92.3 fl (83.0-99.0)
[2023-05-04 06:19] LABS: ANION GAP 12.4 (5-15); BUN/CREATININE RATIO 17.1 (14-18); CALCIUM 9.9 mg/dL (8.5-10.1); CREATININE 1.4 mg/dL (0.7-1.3); EST CRCL DRUG DOSING (CG) 37.32 mL/min; POTASSIUM,K 3.4 mEq/L (3.5-5.1)
[2023-05-04] MEDS: Clopidogrel 75 MG Tab PO SCH (08:04)
[2023-05-04] MEDS: Apixaban 5 MG Tab PO SCH ×2 (08:04→21:01)
[2023-05-04] MEDS: Rosuvastatin 10 MG Tab PO SCH (08:04)
[2023-05-04] MEDS: Losartan 25 MG Tab PO SCH (08:04)
[2023-05-05] MEDS: Pantoprazole 40 MG Tab.CR PO SCH (06:19)
[2023-05-05] MEDS: Furosemide 40 MG Tab PO SCH (06:19)
[2023-05-05 06:34] LABS: HEMATOCRIT 43.2 % (42.0-52.0); HEMOGLOBIN 14.1 gm/dl (14.0-18.0); MEAN CORPUSCULAR HEMOGLOBIN 30.8 pg (28.0-32.0); MEAN CORPUSCULAR HGB CONC 32.6 g/dl (32.0-36.0); MEAN CORPUSCULAR VOLUME 94.3 fl (83.0-99.0); MEAN PLATELET VOLUME 10.1 fl (9.4-12.4); PLATELET COUNT,PLT 180 K/mm3 (150-400); RED BLOOD CELL COUNT 4.58 M/mm3 (4.52-5.90); WHITE BLOOD CELL COUNT,WBC 7.08 K/mm3 (3.9-11.3)
[2023-05-05 06:51] LABS: ANION GAP 12.5 (5-15); CALCIUM 9.7 mg/dL (8.5-10.1); CREATININE 1.5 mg/dL (0.7-1.3); EST CRCL DRUG DOSING (CG) 34.83 mL/min; POTASSIUM,K 3.5 mEq/L (3.5-5.1)
[2023-05-05] MEDS ORDERED: Metoprolol Tartrate 25 MG Tab PO SCH (09:00)
[2023-05-05] MEDS: Clopidogrel 75 MG Tab PO SCH (09:45)
[2023-05-05] MEDS: Apixaban 5 MG Tab PO SCH (09:45)
[2023-05-05] MEDS: Rosuvastatin 10 MG Tab PO SCH (09:45)
[2023-05-05] MEDS: Losartan 25 MG Tab PO SCH (09:46)
[2023-05-05 12:48] VITALS: BP 122/88; PULSE 62
== END 2023-05-05 12:30 | disposition home or self-care (01) | DRG 280 ==
LOC: JD.ED 18:38 → JD.MS 05-03 06:26
PROVIDERS: ADMIT Internal Medicine; ATTEND Internal Medicine
DX: I13.0 Hypertensive heart and chronic kidney disease with heart failure and stage 1 through stage 4 chronic kidney disease, or unspecified chronic kidney disease (principal); I50.23 Acute on chronic systolic (congestive) heart failure; I21.A1 Myocardial infarction type 2; I50.30 Unspecified diastolic (congestive) heart failure; R79.89 Other specified abnormal findings of blood chemistry; J96.01 Acute respiratory failure with hypoxia; I25.810 Atherosclerosis of coronary artery bypass graft(s) without angina pectoris; I25.2 Old myocardial infarction; I48.92 Unspecified atrial flutter; Z66 Do not resuscitate; Z88.8 Allergy status to other drugs, medicaments and biological substances; I48.91 Unspecified atrial fibrillation; I25.10 Atherosclerotic heart disease of native coronary artery without angina pectoris; Z20.822 Contact with and (suspected) exposure to COVID-19; E78.5 Hyperlipidemia, unspecified; E11.51 Type 2 diabetes mellitus with diabetic peripheral angiopathy without gangrene; N18.9 Chronic kidney disease, unspecified; E11.22 Type 2 diabetes mellitus with diabetic chronic kidney disease; Z86.711 Personal history of pulmonary embolism; Z99.81 Dependence on supplemental oxygen; Z79.01 Long term (current) use of anticoagulants; Z79.02 Long term (current) use of antithrombotics/antiplatelets; Z88.2 Allergy status to sulfonamides; Z88.5 Allergy status to narcotic agent; Z98.49 Cataract extraction status, unspecified eye; Z87.891 Personal history of nicotine dependence; Z95.5 Presence of coronary angioplasty implant and graft; Z86.73 Personal history of transient ischemic attack (TIA), and cerebral infarction without residual deficits; Z99.89 Dependence on other enabling machines and devices; Z95.0 Presence of cardiac pacemaker; Z11.52 Encounter for screening for COVID-19; Z79.899 Other long term (current) drug therapy
CPT/HCPCS: 0241U; 36415; 71045; 80048; 80053; 83735; 83880; 84484; 85025; 85027; 85379; 85610; 85730; 93005; 94640; 94660; 94761; 94762; 93010; 96374; 96375; 99285; 99285-25; A9270-GY; J1940; J3490; J7620-GY

== ENCOUNTER 2023-09-06 17:11 | Emergency (ER) | payer MEDICARE, OTHER ==
[2023-09-06] MEDS: HYDROmorphone 0.5 MG/0.5 ML Syringe IVPUSH ONE (17:37)
[2023-09-06] MEDS: Sodium Chloride 0.9% 10 ML Syringe FLUSH PRN (17:38)
[2023-09-06 17:47] LABS: BASOPHILS PERCENT AUTO 0.4 % (0.0-1.0); EOSINOPHILS ABSOLUTE AUTO 0.3 K/mm3 (0.0-0.4); EOSINOPHILS PERCENT AUTO 3.6 % (0.0-6.0); HEMATOCRIT 37.4 % (42.0-52.0); HEMOGLOBIN 12.4 gm/dl (14.0-18.0); IMMATURE GRAN ABSOLUTE AUTO 0.03 K/mm3 (0.00-0.05); IMMATURE GRAN PERCENT AUTO 0.4 % (0.0-0.4); LYMPHOCYTES ABSOLUTE AUTO 0.9 K/mm3 (1.0-4.8); LYMPHOCYTES PERCENT AUTO 11.6 % (24.0-44.0); MEAN CORPUSCULAR HEMOGLOBIN 32.1 pg (28.0-32.0); MEAN CORPUSCULAR HGB CONC 33.2 g/dl (32.0-36.0); MEAN CORPUSCULAR VOLUME 96.9 fl (83.0-99.0); MEAN PLATELET VOLUME 10.1 fl (9.4-12.4); MONOCYTES ABSOLUTE AUTO 0.7 K/mm3 (0.0-0.8); MONOCYTES PERCENT AUTO 9.2 % (0.0-8.0); NEUTROPHILS ABSOLUTE AUTO 5.6 K/mm3 (1.8-7.7); NEUTROPHILS PERCENT AUTO 74.8 % (41.0-71.0); PLATELET COUNT,PLT 172 K/mm3 (150-400); RED BLOOD CELL COUNT 3.86 M/mm3 (4.52-5.90)
[2023-09-06 18:13] LABS: ALBUMIN 3.6 g/dl (3.4-5.0); ANION GAP 13.8 (5-15); BILIRUBIN TOTAL 1.2 mg/dL (0.2-1.0); C-REACTIVE PROTEIN 0.58 mg/dL (<0.30); CALCIUM 9.2 mg/dL (8.5-10.1); CREATININE 1.5 mg/dL (0.7-1.3); EST CRCL DRUG DOSING (CG) 34.83 mL/min; PROTEIN TOTAL,TP 7.1 g/dl (6.4-8.2)
[2023-09-06 18:18] LABS: POTASSIUM,K 3.8 mEq/L (3.5-5.1)
[2023-09-06 18:23] LABS: CORONAVIRUS COVID-19 NAA NEGATIVE (NEGATIVE); INFLUENZA A NAA NEGATIVE (NEGATIVE); RESPIRATORY SYNCYTIAL VIR NAA NEGATIVE (NEGATIVE)
[2023-09-06] MEDS: predniSONE 10 MG Tab PO ONE (20:42)
[2023-09-06] MEDS: Doxycycline Monohydrate 100 MG Cap PO ONE (20:42)
[2023-09-06 20:54] VITALS: BP 123/62; PULSE 68
== END 2023-09-06 20:52 | disposition home or self-care (01) ==
LOC: JD.ED 17:11
DX: J40 Bronchitis, not specified as acute or chronic (principal); M54.50 Low back pain, unspecified; I13.0 Hypertensive heart and chronic kidney disease with heart failure and stage 1 through stage 4 chronic kidney disease, or unspecified chronic kidney disease; I50.30 Unspecified diastolic (congestive) heart failure; N18.9 Chronic kidney disease, unspecified; E11.22 Type 2 diabetes mellitus with diabetic chronic kidney disease; I48.91 Unspecified atrial fibrillation; I25.10 Atherosclerotic heart disease of native coronary artery without angina pectoris; E78.00 Pure hypercholesterolemia, unspecified; Z88.8 Allergy status to other drugs, medicaments and biological substances; Z86.73 Personal history of transient ischemic attack (TIA), and cerebral infarction without residual deficits; Z88.5 Allergy status to narcotic agent; Z88.2 Allergy status to sulfonamides; Z79.51 Long term (current) use of inhaled steroids; Z79.01 Long term (current) use of anticoagulants; Z79.899 Other long term (current) drug therapy; Z95.5 Presence of coronary angioplasty implant and graft; Z87.891 Personal history of nicotine dependence
CPT/HCPCS: 0241U; 36415; 71046; 80053; 83880; 84484; 85025; 86140; 93005; 96374; 99284; A9270; J1170; J3490; J7512

== ENCOUNTER 2023-09-10 07:12 | Emergency (ER) | payer MEDICARE, OTHER ==
[2023-09-10 07:23] VITALS: PULSE 66
[2023-09-10 08:40] LABS: BASOPHILS PERCENT AUTO 0.3 % (0.0-1.0); EOSINOPHILS ABSOLUTE AUTO 0.1 K/mm3 (0.0-0.4); EOSINOPHILS PERCENT AUTO 2.3 % (0.0-6.0); HEMATOCRIT 38.5 % (42.0-52.0); HEMOGLOBIN 12.5 gm/dl (14.0-18.0); IMMATURE GRAN ABSOLUTE AUTO 0.02 K/mm3 (0.00-0.05); IMMATURE GRAN PERCENT AUTO 0.3 % (0.0-0.4); LYMPHOCYTES ABSOLUTE AUTO 0.5 K/mm3 (1.0-4.8); LYMPHOCYTES PERCENT AUTO 7.9 % (24.0-44.0); MEAN CORPUSCULAR HEMOGLOBIN 31.3 pg (28.0-32.0); MEAN CORPUSCULAR HGB CONC 32.5 g/dl (32.0-36.0); MEAN CORPUSCULAR VOLUME 96.5 fl (83.0-99.0); MEAN PLATELET VOLUME 9.6 fl (9.4-12.4); MONOCYTES ABSOLUTE AUTO 0.5 K/mm3 (0.0-0.8); MONOCYTES PERCENT AUTO 8.1 % (0.0-8.0); NEUTROPHILS PERCENT AUTO 81.1 % (41.0-71.0); PLATELET COUNT,PLT 149 K/mm3 (150-400); RED BLOOD CELL COUNT 3.99 M/mm3 (4.52-5.90); WHITE BLOOD CELL COUNT,WBC 6.17 K/mm3 (3.9-11.3)
[2023-09-10 08:43] LABS: APPEARANCE,URINE CLEAR (Clear); BILIRUBIN,URINE NEGATIVE (Negative); COLOR,URINE YELLOW (Yellow); GLUCOSE,URINE NEGATIVE (Negative); KETONES,URINE NEGATIVE (Negative); LEUKOCYTE ESTERASE,URINE NEGATIVE (Negative); NITRITE,URINE NEGATIVE (Negative); OCCULT BLOOD,URINE NEGATIVE (Negative); PROTEIN,URINE NEGATIVE (Negative); UROBILINOGEN,URINE 0.2 (0.2-1.0)
[2023-09-10 09:13] LABS: ALBUMIN 3.2 g/dl (3.4-5.0); ANION GAP 12.5 (5-15); BILIRUBIN TOTAL 1.3 mg/dL (0.2-1.0); BUN/CREATININE RATIO 27.7 (14-18); CALCIUM 9.7 mg/dL (8.5-10.1); CREATININE 1.3 mg/dL (0.7-1.3); EST CRCL DRUG DOSING (CG) 41.54 mL/min; POTASSIUM,K 3.5 mEq/L (3.5-5.1); PROTEIN TOTAL,TP 6.5 g/dl (6.4-8.2)
[2023-09-10] MEDS: Morphine 2 MG/ML SYRINGE IVPUSH ONE (12:19)
[2023-09-10] MEDS: Sodium Chloride 0.9% 10 ML Syringe FLUSH PRN (12:20)
[2023-09-10] MEDS: Iopamidol 612 MG/ML 100 ML Bottle IVPUSH ONE (12:54)
[2023-09-10 17:21] VITALS: BP 135/61
== END 2023-09-10 17:07 | disposition home or self-care (01) ==
LOC: JD.ED 07:12
DX: S22.080A Wedge compression fracture of T11-T12 vertebra, initial encounter for closed fracture (principal); I48.91 Unspecified atrial fibrillation; I13.0 Hypertensive heart and chronic kidney disease with heart failure and stage 1 through stage 4 chronic kidney disease, or unspecified chronic kidney disease; I50.9 Heart failure, unspecified; E11.22 Type 2 diabetes mellitus with diabetic chronic kidney disease; I25.10 Atherosclerotic heart disease of native coronary artery without angina pectoris; E78.00 Pure hypercholesterolemia, unspecified; I25.2 Old myocardial infarction; N18.9 Chronic kidney disease, unspecified; Z88.8 Allergy status to other drugs, medicaments and biological substances; Z88.2 Allergy status to sulfonamides; Z88.1 Allergy status to other antibiotic agents; Z79.899 Other long term (current) drug therapy; Z79.01 Long term (current) use of anticoagulants; Z95.1 Presence of aortocoronary bypass graft; Z95.5 Presence of coronary angioplasty implant and graft
CPT/HCPCS: 36415; 71260; 71260-26; 80053; 81003; 83880; 84484; 85025; 93005; 96374; 99285-25; J2270; J3490; Q9967

== ENCOUNTER 2023-10-10 08:52 | Emergency (ER) | payer MEDICARE, OTHER ==
[2023-10-10 09:27] LABS: BASOPHILS PERCENT AUTO 0.5 % (0.0-1.0); EOSINOPHILS ABSOLUTE AUTO 0.4 K/mm3 (0.0-0.4); EOSINOPHILS PERCENT AUTO 5.9 % (0.0-6.0); HEMATOCRIT 47.2 % (42.0-52.0); HEMOGLOBIN 15.4 gm/dl (14.0-18.0); IMMATURE GRAN ABSOLUTE AUTO 0.02 K/mm3 (0.00-0.05); IMMATURE GRAN PERCENT AUTO 0.3 % (0.0-0.4); LYMPHOCYTES PERCENT AUTO 15.4 % (24.0-44.0); MEAN CORPUSCULAR HEMOGLOBIN 30.8 pg (28.0-32.0); MEAN CORPUSCULAR HGB CONC 32.6 g/dl (32.0-36.0); MEAN CORPUSCULAR VOLUME 94.4 fl (83.0-99.0); MEAN PLATELET VOLUME 9.5 fl (9.4-12.4); MONOCYTES ABSOLUTE AUTO 0.6 K/mm3 (0.0-0.8); MONOCYTES PERCENT AUTO 9.1 % (0.0-8.0); NEUTROPHILS ABSOLUTE AUTO 4.2 K/mm3 (1.8-7.7); NEUTROPHILS PERCENT AUTO 68.8 % (41.0-71.0); PLATELET COUNT,PLT 187 K/mm3 (150-400); WHITE BLOOD CELL COUNT,WBC 6.15 K/mm3 (3.9-11.3)
[2023-10-10 09:33] LABS: INR 1.04; PROTHROMBIN TIME 11.1 SECONDS (9.7-12.0)
[2023-10-10 09:35] LABS: PTT,PARTIAL THROMBOPLSTIN TIME 30.5 SECONDS (21.7-31.4)
[2023-10-10 09:40] LABS: A/G RATIO 0.9 (1-2); ALBUMIN 3.6 g/dl (3.4-5.0); ANION GAP 14.6 (5-15); BILIRUBIN TOTAL 0.8 mg/dL (0.2-1.0); BUN/CREATININE RATIO 19.3 (14-18); C-REACTIVE PROTEIN 0.84 mg/dL (<0.30); CALCIUM 10.2 mg/dL (8.5-10.1); CREATININE 1.5 mg/dL (0.7-1.3); MAGNESIUM 2.2 mg/dL (1.8-2.4); PHOSPHORUS 4.4 mg/dL (2.6-4.7); POTASSIUM,K 4.6 mEq/L (3.5-5.1); PROTEIN TOTAL,TP 7.5 g/dl (6.4-8.2)
[2023-10-10 09:41] LABS: LACTIC ACID 1.2 mmol/L (0.4-2.0)
[2023-10-10 09:43] LABS: D-DIMER QUANTITATIVE 4.65 mg/L (0.19-0.50)
[2023-10-10] MEDS: Ondansetron 4 MG/2 ML SDV IVPUSH ONE (10:11)
[2023-10-10] MEDS: Morphine 2 MG/ML SYRINGE IVPUSH ONE (10:11)
[2023-10-10] MEDS: Sodium Chloride 0.9% 10 ML Syringe FLUSH PRN (10:11)
[2023-10-10 10:22] LABS: CORONAVIRUS COVID-19 NAA NEGATIVE (NEGATIVE); INFLUENZA A NAA NEGATIVE (NEGATIVE); RESPIRATORY SYNCYTIAL VIR NAA NEGATIVE (NEGATIVE)
[2023-10-10] MEDS: Iopamidol 755 Mg/ML 100 ML Bottle IVPUSH ONE (10:47)
[2023-10-10] MEDS: Sodium Chloride 0.9% 100 ML IV SCH (10:48)
[2023-10-10] MEDS: fentaNYL 100 MCG/2 ML SDV IVPUSH ONE (10:49)
[2023-10-10] MEDS: Clopidogrel 75 MG Tab PO ONE (10:49)
[2023-10-10 15:03] VITALS: BP 112/77; PULSE 64
== END 2023-10-10 14:35 | disposition home or self-care (01) ==
LOC: JD.ED 08:52
DX: S22.080A Wedge compression fracture of T11-T12 vertebra, initial encounter for closed fracture (principal); G89.29 Other chronic pain; R10.12 Left upper quadrant pain; R07.89 Other chest pain; I50.30 Unspecified diastolic (congestive) heart failure; I71.40 Abdominal aortic aneurysm, without rupture, unspecified; I21.4 Non-ST elevation (NSTEMI) myocardial infarction; I13.0 Hypertensive heart and chronic kidney disease with heart failure and stage 1 through stage 4 chronic kidney disease, or unspecified chronic kidney disease; I50.9 Heart failure, unspecified; N18.9 Chronic kidney disease, unspecified; I25.810 Atherosclerosis of coronary artery bypass graft(s) without angina pectoris; E11.9 Type 2 diabetes mellitus without complications; Z88.8 Allergy status to other drugs, medicaments and biological substances; Z88.2 Allergy status to sulfonamides; Z88.5 Allergy status to narcotic agent; Z79.899 Other long term (current) drug therapy; X58.XXXA Exposure to other specified factors, initial encounter
CPT/HCPCS: 0241U; 36415; 71045; 71275; 74175; 80053; 83605; 83690; 83735; 83880; 84100; 84484; 85025; 85379; 85610; 85652; 85730; 86140; 93005; 96374; 96375; 99284; A9270; J2270; J2405; J3010; J3490; Q9967; 93010; 99285

== ENCOUNTER 2025-02-19 20:58 | Emergency (ER) | payer MEDICARE, OTHER ==
[2025-02-19 21:51] LABS: BASOPHILS ABSOLUTE AUTO 0.0 K/mm3 (0.0-0.2); BASOPHILS PERCENT AUTO 0.6 % (0.0-1.0); EOSINOPHILS ABSOLUTE AUTO 0.4 K/mm3 (0.0-0.4); EOSINOPHILS PERCENT AUTO 5.7 % (0.0-6.0); IMMATURE GRAN ABSOLUTE AUTO 0.01 K/mm3 (0.00-0.05); IMMATURE GRAN PERCENT AUTO 0.2 % (0.0-0.4); LYMPHOCYTES ABSOLUTE AUTO 1.2 K/mm3 (1.0-4.8); LYMPHOCYTES PERCENT AUTO 19.3 % (24.0-44.0); MEAN PLATELET VOLUME 10.1 fl (9.4-12.4); MONOCYTES ABSOLUTE AUTO 0.6 K/mm3 (0.0-0.8); MONOCYTES PERCENT AUTO 10.2 % (0.0-8.0); NEUTROPHILS ABSOLUTE AUTO 3.9 K/mm3 (1.8-7.7); NEUTROPHILS PERCENT AUTO 64.0 % (41.0-71.0); NRBC ABSOLUTE 0.00 (0.00-0.02); NRBC PERCENT 0.0 % (0.0-0.2); PLATELET COUNT,PLT 174 K/mm3 (150-400); RED BLOOD CELL COUNT 4.29 M/mm3 (4.52-5.90); WHITE BLOOD CELL COUNT,WBC 6.16 K/mm3 (3.9-11.3)
[2025-02-19] MEDS: diphenhydrAMINE 50 MG/ML SDV IVPUSH ONE (21:54)
[2025-02-19 22:07] LABS: A/G RATIO 1.0 (1-2); ALANINE AMINOTRANSFERASE,ALT 16.0 U/L (16-63); ASPARTATE AMNIOTRANSFERASE,AST 16.0 U/L (15-37); BILIRUBIN TOTAL 1.2 mg/dL (0.2-1.0); BLOOD UREA NITROGEN,BUN 27.0 mg/dL (7-18); CARBON DIOXIDE,CO2 28.0 mEq/L (21-32); CHLORIDE,CL 106.0 mEq/L (98-107); CREATININE 1.5 mg/dL (0.7-1.3); EST CRCL DRUG DOSING (CG) 33.57 mL/min; ESTIMATED GFR 45.0 mL/min (>60); GLUCOSE RANDOM 111.0 mg/dL (70-99); POTASSIUM,K 3.9 mEq/L (3.5-5.1); PROTEIN TOTAL,TP 6.5 g/dl (6.4-8.2); SODIUM,NA 144.0 mEq/L (136-145); TSH 1.533 uIU/mL (0.358-3.74)
[2025-02-19] MEDS: Sodium Chloride 0.9% 10 ML Syringe FLUSH PRN (22:36)
[2025-02-19] MEDS: Iopamidol 755 Mg/ML 100 ML Bottle IVPUSH ONE (22:36)
[2025-02-20 03:53] VITALS: BP 133/60; PULSE 69
== END 2025-02-20 03:20 | disposition home or self-care (01) ==
LOC: JD.ED 20:58
DX: R42 Dizziness and giddiness (principal); I13.0 Hypertensive heart and chronic kidney disease with heart failure and stage 1 through stage 4 chronic kidney disease, or unspecified chronic kidney disease; I25.9 Chronic ischemic heart disease, unspecified; I48.91 Unspecified atrial fibrillation; I25.10 Atherosclerotic heart disease of native coronary artery without angina pectoris; E11.9 Type 2 diabetes mellitus without complications; N18.9 Chronic kidney disease, unspecified; Z79.899 Other long term (current) drug therapy; Z88.8 Allergy status to other drugs, medicaments and biological substances; Z87.891 Personal history of nicotine dependence
CPT/HCPCS: 36415; 70450; 70496; 70498; 80053; 83735; 84443; 84484; 85025; 93005; 96361; 96374; 96375; 99285; A9270; J1200; J2765; J7030; Q9967; 93010; 99284